=== PATIENT | female | born 1985 ===

== ENCOUNTER 2020-07-22 09:35 | Outpatient (REF) | payer MEDICAID, SELFPAY ==
[2020-07-23 09:27] LABS: CT PCR NOT DETECTED (Not Detect.); NG PCR NOT DETECTED (Not Detect.)
[2020-07-26 20:21] LABS: HPV mRNA E6/E7 rflx Not Detected (Not Detected)
== END 2020-07-22 09:36 | disposition home or self-care (01) ==
LOC: HO.LAB 09:35
PROVIDERS: Visit Provider Obstetrics & Gynecology
DX: Z30.432 Encounter for removal of intrauterine contraceptive device (principal); Z01.411 Encounter for gynecological examination (general) (routine) with abnormal findings; Z11.51 Encounter for screening for human papillomavirus (HPV); N92.1 Excessive and frequent menstruation with irregular cycle; R10.2 Pelvic and perineal pain; N80.9 Endometriosis, unspecified; Z20.2 Contact with and (suspected) exposure to infections with a predominantly sexual mode of transmission
CPT/HCPCS: 58301; 81003; 81025; 87491; 87591; 87624; 88142

== ENCOUNTER 2020-08-03 13:15 | Outpatient (REF) | payer MEDICAID, SELFPAY ==
[2020-08-03 14:48] LABS: Hematocrit 39.9 % (37-47); Hemoglobin 13.4 g/dl (12.0-16.0); Mean Corpuscular HGB Conc 33.6 g/dl (31.0-35.0); Mean Corpuscular Hemoglobin 32.7 pg (27.0-33.0); Mean Corpuscular Volume 97.3 fL (80-98); Mean Platelet Volume 10.6 fL (9.4-12.3); Platelet Count 290 X10*3/uL (160-400); Red Cell Distribution Width 12.8 % (11.0-16.0); White Blood Count 6.2 X10*3/uL (4.8-10.8)
[2020-08-04 09:48] LABS: CT PCR NOT DETECTED (Not Detect.); NG PCR NOT DETECTED (Not Detect.)
== END 2020-08-03 13:16 | disposition home or self-care (01) ==
LOC: HO.LAB 13:15
PROVIDERS: Visit Provider Obstetrics & Gynecology
DX: N93.9 Abnormal uterine and vaginal bleeding, unspecified (principal); R10.2 Pelvic and perineal pain; Z97.5 Presence of (intrauterine) contraceptive device; Z79.899 Other long term (current) drug therapy
CPT/HCPCS: 36415; 85027; 87491; 87591; 99212

== ENCOUNTER 2020-08-04 11:32 | Outpatient (REF) | payer MEDICAID, SELFPAY ==
--- NOTE | ~2020-08-04 | US_ITS ---
EXAMINATION: ULTRASOUND PELVIS COMPLETE. CLINICAL INFORMATION: Pelvic and perineal pain. History of endometriosis. COMPARISON: None TECHNIQUE: Transabdominal and transvaginal imaging of pelvis was performed. FINDINGS: The uterus is anteverted and anteflexed measuring 8.0 cm in length, 5.02 cm and 5.76 cm in transverse dimension. Endometrial thickness is 0.63 cm. There is a hypoechoic lesion in the anterior body of uterus measuring 0.3 x 2.9 x 3.8 cm, likely fibroid. No additional lesions seen. IUD is not visualized at this time. The right ovary measures 3.68 x 1.93 x 2.52 cm and volume 9.37 mL. Appears unremarkable. Previously right ovary measures 2.1 x 2.1 x 1.9 cm. The left ovary measures 2. 931.65 x 1.75 cm and volume 4.42 mL. It is unremarkable. Previously left ovary measured 2.8 x 5.3 x 2.2 cm. There is small amount of free fluid in the pelvis. US/US transvaginal IMPRESSION: Likely small uterine fibroid in the anterior body of uterus. Patient is actively bleeding. No fibroid is new since the last ultrasound exam 05/02/2018 Endometrial thickness measures 0.63 cm. The ovaries are unremarkable.
--- NOTE | ~2020-08-04 | US_ITS ---
EXAMINATION: ULTRASOUND PELVIS COMPLETE. CLINICAL INFORMATION: Pelvic and perineal pain. History of endometriosis. COMPARISON: None TECHNIQUE: Transabdominal and transvaginal imaging of pelvis was performed. FINDINGS: The uterus is anteverted and anteflexed measuring 8.0 cm in length, 5.02 cm and 5.76 cm in transverse dimension. Endometrial thickness is 0.63 cm. There is a hypoechoic lesion in the anterior body of uterus measuring 0.3 x 2.9 x 3.8 cm, likely fibroid. No additional lesions seen. IUD is not visualized at this time. The right ovary measures 3.68 x 1.93 x 2.52 cm and volume 9.37 mL. Appears unremarkable. Previously right ovary measures 2.1 x 2.1 x 1.9 cm. The left ovary measures 2. 931.65 x 1.75 cm and volume 4.42 mL. It is unremarkable. Previously left ovary measured 2.8 x 5.3 x 2.2 cm. There is small amount of free fluid in the pelvis. US/US pelvic complete IMPRESSION: Likely small uterine fibroid in the anterior body of uterus. Patient is actively bleeding. No fibroid is new since the last ultrasound exam 05/02/2018 Endometrial thickness measures 0.63 cm. The ovaries are unremarkable.
== END 2020-08-04 11:33 | disposition home or self-care (01) ==
LOC: HO.US 11:32
PROVIDERS: Visit Provider Obstetrics & Gynecology
DX: R10.2 Pelvic and perineal pain (principal)
CPT/HCPCS: 76830; 76856

== ENCOUNTER → 2020-08-23 08:01 | Outpatient (BNVA) | payer MEDICAID, SELFPAY | PROVIDERS: Visit Provider Obstetrics & Gynecology | DX: N92.1 Excessive and frequent menstruation with irregular cycle (principal); D21.9 Benign neoplasm of connective and other soft tissue, unspecified | CPT/HCPCS: 99212 ==

== ENCOUNTER → 2020-10-19 07:59 | Outpatient (BNVA) | payer MEDICAID, SELFPAY | PROVIDERS: Visit Provider Obstetrics & Gynecology | DX: N92.1 Excessive and frequent menstruation with irregular cycle (principal) | CPT/HCPCS: 99212 ==

== ENCOUNTER 2021-07-04 14:13 | Outpatient (REF) | payer MEDICAID, SELFPAY ==
[2021-07-04 15:33] LABS: Hematocrit 22.6 % (37.0-47.0); Hemoglobin 7.3 g/dl (12.0-16.0); Mean Corpuscular HGB Conc 32.3 g/dl (31.0-35.0); Mean Corpuscular Volume 89.7 fL (80.0-98.0); Platelet Count 357 X10*3/uL (160-400); Red Blood Count 2.52 X10*6/uL (4.20-5.50); Red Cell Distribution Width 13.9 % (11.0-16.0); White Blood Count 8.6 X10*3/uL (4.8-10.8)
[2021-07-04 16:24] LABS: HCG Quantitative < 2 mIU/mL; TSH reflex Free T4 1.57 uIU/mL (0.32-4.0)
[2021-07-05 06:31] LABS: CT PCR NOT DETECTED (Not Detect.); NG PCR NOT DETECTED (Not Detect.)
== END 2021-07-04 14:14 | disposition home or self-care (01) ==
LOC: HO.LAB 14:13
PROVIDERS: Visit Provider Obstetrics & Gynecology
DX: Z01.411 Encounter for gynecological examination (general) (routine) with abnormal findings (principal); N93.9 Abnormal uterine and vaginal bleeding, unspecified
CPT/HCPCS: 36415; 84443; 84702; 85027; 87491; 87591; 99212

== ENCOUNTER 2021-07-04 15:53 | Emergency (ER) | payer MEDICAID, SELFPAY ==
[2021-07-04] VITALS (16 sets, daily range): BP systolic 94–122; BP diastolic 48–71; PULSE 75–100; RESP 14–18; TEMP 36.9–37.4; O2SAT 99–100; BMI 26.6
--- NOTE | 2021-07-04 16:05 | ED.FEMALEGU ---
HPI - Female Genitourinary General Chief complaint: Vaginal Bleeding Stated complaint: Low Blood Count Time Seen by Provider: 07/04/21 16:00 Source: patient Mode of arrival: ambulatory Limitations: no limitations History of Present Illness HPI Narrative: This is a 36-year-old female presenting to the emergency department with abnormal uterine bleeding for the past 10 days. She was sent in from her OB GYNs office Dr. Julio. Patient tells me that she has been having a lot of bright red blood, she tells me that she is frequently changing her pad, around every hour or 2. According to patient and Dr. Julio E patient was on continuous control pills for the last year which she was taking 1 week off every 90 days her last pill was taken on June 18, she went to her pharmacy and there is no other pack of pills so she has not taken her control pills since then. She reports that her last menstrual cycle was on June 22 and has been bleeding ever since. She denies any abdominal pain, nausea, vomiting, chances of , fevers, chills, chest pain, shortness of breath, dizziness, weakness. MD elicited complaint: vaginal bleeding Severity: moderate Vaginal discharge: none Vaginal bleeding: none Exacerbating factors: none Relieving factors: none Associated symptoms: denies other symptoms Treatment prior to arrival: none Sexual activity: Yes Patient : Yes Related Data Previous Rx's Medication Instructions Recorded norgestrel 0.3 mg-ethinyl 1 tab PO DAILY 90 Days #90 tab 07/04/21 estradiol 30 mcg tablet (Humberto (28)) Allergies Allergy/AdvReac Type Severity Reaction Status Date / Time No Known Allergies Allergy Verified 07/04/21 16:00 Review of Systems Review of Systems: Constitutional : No Weight loss, No Fever, No Chills, No Fatigue, No Malaise ENT/Mouth : No sore throat, No Rhinorrhea Eyes: No Eye Pain, No Swelling, No Redness Cardiovascular : No Chest Pain, No SOB, No Dyspnea on Exertion, No Orthopnea, No Edema, No Palpitations Respiratory : No Cough, No Sputum, No Wheezing Gastrointestinal : No Nausea, No Vomiting, No Diarrhea, No Constipation, No abdominal Pain, No Hematochezia, No Melena Genitourinary : No Dysuria, No Urinary Frequency, No Hematuria, + vaginal bleeding Musculoskeletal : No joint pain, No Myalgias, No Joint Swelling Skin : No Skin Lesions, No rash Neuro : No Weakness, No Numbness, No Dizziness, No Headache Psych : No Anxiety/Panic, No Depression All other systems reviewed and are negative Yes all other systems are reviewed and are negative [facility] Past Medical History Attestation statement: The following information was validated with the patient. Source: old records reviewed and nursing notes reviewed Medical History Constipation Endometriosis Hypoglycemia Surgical History Hx of laparoscopy Family History Family History Father HTN (hypertension) Diabetes Mother Hypothyroid Maternal Grandfather No problems noted. Maternal Aunt Throat cancer Sister Hypothyroid Social History Social History Household Members: Significant Other Household Members Other:: son Housing: Condominium Alcohol intake: current Alcohol intake frequency: holidays/special occasions only Patient Tobacco Use Status: Never used Tobacco Advance Directives: No Advance Directives Information Provided: No Patient : No Physical Exam Vital Signs: Vital Signs: Last Vital Signs Temp 98.5 F 07/04/21 16:00 Pulse 92 07/04/21 16:00 Resp 18 07/04/21 16:00 BP 122/71 07/04/21 16:00 Pulse Ox 100 07/04/21 16:00 BMI result Body Mass Index 26.6 Appearance: Alert.? Oriented X3.? No acute distress.? Head: Normocephalic, atraumatic, no step-offs or deformities Eyes: Pupils equal, round and reactive to light.? ENT: Pharynx normal.? Neck: Normal inspection.? Neck supple.? CVS: Normal heart rate and rhythm.? Pulses normal.? Respiratory: No respiratory distress.? Breath sounds normal.? Abdomen: Soft and nontender.? Skin: Skin warm and dry.? Normal skin color.? Normal skin turgor.? Extremities: No lower extremity edema.? No calf ttp. 5/5 strength to bilateral upper and lower extremities Back: No midline tenderness, no C-spine tenderness, full range of motion, no CVA tenderness bilaterally Neuro: Oriented X 3.? No motor deficit.? No sensory deficit. CN 2-12 intact Course Reevaluation(s) Reevaluation #1: Spoke to Dr. 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 for 2 days, 1 b.i.d. for 2 days and then take 1 daily. He would also like 2 units of packed red blood cells transfused based off patient's lab work Time: 16:11 Reevaluation #2: Patient's magnesium noted to be elevated 4.9, however she does have 2+ reflexes upper and lower extremities, no neurological impairment, patient is not hypotensive, no nausea or vomiting, no bradycardia. Ordered an EKG to rule out intraventricular conduction issues. She does report that she takes multiple multivitamins a day. I gave sign-out to MYRANDA Chowdhury. Time: 17:16 MDM - Female Genitourinary MDM Narrative Medical decision making narrative: 1610 36-year-old female presents with abnormal uterine bleeding times 10 days. Sent in from her OB GYNs office Dr. Julio Physical exam benign. At this time a pelvic exam was not done as 1 was done earlier today. Plan at this time is labs, type and screen and prepare for blood transfusion. Written consent was obtained Medical Records Attestation: I reviewed the patient's medical records. Lab Data Attestation: I reviewed the patient's lab results. Result diagrams: 07/04/21 16:15 Labs: Lab Results 07/04/21 07/04/21 07/04/21 Range/Units 16:15 16:15 16:15 Sodium 137 (135-145) mmol/L Potassium 3.9 (3.3-5.1) mmol/L Chloride 108 (96-108) mmol/L Carbon Dioxide 25 (22-29) mmol/L Anion Gap 8 L (12-20) BUN 7 L (9-16) mg/dL Creatinine 0.67 (0.5-1.4) mg/dL Estim Creat Clear Calc 118.1 Estimated GFR > 60 Random Glucose 86 (60-115) mg/dL Calcium 9.3 (8.4-10.2) mg/dL Magnesium 4.9 H* (1.6-2.6) mg/dL Total Bilirubin 0.2 (0.0-1.0) mg/dL AST 22 (5-31) U/L ALT 20 (0-31) U/L Alkaline Phosphatase 49 (39-117) U/L Total Protein 6.7 (6.5-8.0) g/dL Albumin 3.8 (3.5-5.0) g/dL Beta HCG, Quant < 2 mIU/mL COVID-19 (MAGAD) Negative (Negative) COVID-19 Clin Com See Note Blood Type O Positive Antibody Screen NEGATIVE Crossmatch See Detail Critical Care Time Critical Care Time Critical Care Time: No Discharge Plan Discharge Clinical Impression: Abnormal uterine bleeding (AUB) Patient Disposition: Home, Self-Care Additional Instructions: Take your medications as prescribed. If you were prescribed antibiotics today, it is important that you take your medication to their entirety, do not skip any doses, do not finish them early. Follow-up with your primary care provider this week. Return to the emergency department with new or worsening symptoms. Such as fevers, chills, chest pain, shortness of breath, nausea, vomiting, dizziness, headache, vision changes, lethargy, weakness, if your bleeding through more than 2 pads per hour or tampons. In case of emergency call [address] 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 If you have any issues filling these prescriptions please reach out to Dr. Julio directly Prescriptions: No Action Humberto (28) 0.3-30 mg-mcg tablet 1 tab PO DAILY 90 Days Qty: 90 3RF Rx Instructions: Take 1 tablet a day continuously for 90 days then 1 week off Referrals: [facility] [Primary Care Provider] - 2 days Nishant Julio MD [Physician] - 2 days Stand Alone Forms: Work/School Release
[2021-07-04 17:02] LABS: Alanine Aminotransferase 20 U/L (0-31); Albumin Level 3.8 g/dL (3.5-5.0); Alkaline Phosphatase 49 U/L (39-117); Anion Gap 8 (12-20); Aspartate Amino Transferase 22 U/L (5-31); Bilirubin Total 0.2 mg/dL (0.0-1.0); Blood Urea Nitrogen 7 mg/dL (9-16); Calcium 9.3 mg/dL (8.4-10.2); Carbon Dioxide 25 mmol/L (22-29); Chloride 108 mmol/L (96-108); Creatinine Clr Calc Pharmacy 118.1; Estimated Glomerular Filt Rate > 60; Glucose Random 86 mg/dL (60-115); Magnesium 4.9 mg/dL (1.6-2.6); Potassium 3.9 mmol/L (3.3-5.1); Sodium 137 mmol/L (135-145); Total Protein 6.7 g/dL (6.5-8.0)
[2021-07-04 17:04] LABS: HCG Quantitative < 2 mIU/mL
[2021-07-04 17:06] LABS: COVID-19 Test Negative (Negative)
--- NOTE | 2021-07-04 17:13 | PC.NURSE ---
took lab report off phone of a Mag level of 4.9, I reported to Mari WHITMORE and Nara MONTOYA
--- NOTE | 2021-07-04 17:55 | ECG_ITS ---
Test Reason : BLOOD LOSS Blood Pressure : / mmHG Vent. Rate : 089 BPM Atrial Rate : 089 BPM P-R Int : 146 ms QRS Dur : 118 ms QT Int : 386 ms P-R-T Axes : 057 032 017 degrees QTc Int : 469 ms Normal sinus rhythm Incomplete right bundle branch block Borderline ECG No previous ECGs available Referred By: Liv Reyes Electronically Signed By:JORDANA GIFFORD
[2021-07-04] MEDS: hydrOXYzine HCL 25 MG TABLET PO (18:07)
--- NOTE | 2021-07-04 19:58 | PC.NURSE ---
Blood transfusion started dual sign off done with Pam RN, Alli RN at bedside for first 15 minutes
--- NOTE | 2021-07-04 20:14 | PC.NURSE ---
15 minute window for blood transfusion observation over. No signs of reaction, will continue to monitor.
--- NOTE | 2021-07-04 21:56 | PC.NURSE ---
2nd unit of tranfusion started Alyssa MONTOYA at bedside during first 15 mins, no signs of reaction will continue to monitor.
[2021-07-05 00:07] LABS: Basophils Percent Auto 0.3 % (0-2); Eosinophils Absolute Auto 0.5 X10*3/uL (0.0-0.4); Eosinophils Percent Auto 5.2 % (0-4); Hematocrit 26.6 % (37.0-47.0); Hemoglobin 8.9 g/dl (12.0-16.0); Imm Gran Abs Auto 0.01 X10*3/uL (0.00-0.03); Imm Gran Pct Auto 0.1 % (0.0-0.4); Lymphocytes Absolute Auto 2.7 X10*3/uL (1.2-4.9); Lymphocytes Percent Auto 31.3 % (20-40); MANUAL DIFF FLAG NO; Mean Corpuscular HGB Conc 33.5 g/dl (31.0-35.0); Mean Corpuscular Hemoglobin 29.9 pg (27.0-33.0); Mean Corpuscular Volume 89.3 fL (80.0-98.0); Mean Platelet Volume 9.8 fL (9.4-12.3); Monocytes Absolute Auto 0.9 X10*3/uL (0.1-1.2); Neutrophils Absolute Auto 4.6 x10*3/uL (2.0-8.3); Neutrophils Percent Auto 53.1 % (45-73); Platelet Count 261 X10*3/uL (160-400); Red Blood Count 2.98 X10*6/uL (4.20-5.50); Red Cell Distribution Width 14.2 % (11.0-16.0); White Blood Count 8.6 X10*3/uL (4.8-10.8)
[2021-07-05 00:13] VITALS: BP 113/66; PULSE 74; RESP 14; O2SAT 100
[2021-07-05 01:09] VITALS: BP 97/56; PULSE 94; RESP 18; TEMP 37.1; O2SAT 100
== END 2021-07-05 01:14 | disposition home or self-care (01) ==
LOC: HO.ED 16:19
PROVIDERS: Physician Assistant; Emergency Provider Emergency Medicine
DX: N93.8 Other specified abnormal uterine and vaginal bleeding (principal); D64.9 Anemia, unspecified; Z20.822 Contact with and (suspected) exposure to COVID-19; Z79.899 Other long term (current) drug therapy
CPT/HCPCS: 36415; 36430; 80053; 83735; 84702; 85025; 86850; 86900; 86901; 86923; 87635; 93005; 99285; P9016

== ENCOUNTER → 2021-08-15 08:21 | Outpatient (BNVA) | payer MEDICAID, SELFPAY | PROVIDERS: Visit Provider Obstetrics & Gynecology | DX: N93.9 Abnormal uterine and vaginal bleeding, unspecified (principal); D64.9 Anemia, unspecified | CPT/HCPCS: 99212 ==

== ENCOUNTER → 2021-08-29 09:18 | Outpatient (BNV) | payer MEDICAID, OTHER, SELFPAY | PROVIDERS: Referring Provider Obstetrics & Gynecology; Visit Provider Internal Medicine | DX: D64.9 Anemia, unspecified (principal) | CPT/HCPCS: 99204; 99213; 99214 ==

== ENCOUNTER 2021-09-22 08:06 | Outpatient (REF) | payer MEDICAID, SELFPAY | END 2021-09-22 08:07 | disposition home or self-care (01) | LOC: HO.MDS 08:06 | PROVIDERS: Visit Provider Internal Medicine | DX: D50.9 Iron deficiency anemia, unspecified (principal) | CPT/HCPCS: 96365; J1756 ==

== ENCOUNTER 2021-09-28 07:35 | Outpatient (REF) | payer MEDICAID, SELFPAY | END 2021-09-28 07:36 | disposition home or self-care (01) | LOC: HO.MDS 07:35 | PROVIDERS: Visit Provider Internal Medicine | DX: D50.9 Iron deficiency anemia, unspecified (principal) | CPT/HCPCS: 96365; J1756 ==

== ENCOUNTER 2021-10-04 07:05 | Outpatient (REF) | payer MEDICAID, SELFPAY | END 2021-10-04 07:06 | disposition home or self-care (01) | LOC: HO.MDS 07:05 | PROVIDERS: Visit Provider Internal Medicine | DX: D50.9 Iron deficiency anemia, unspecified (principal) | CPT/HCPCS: 96365; J1756 ==

== ENCOUNTER 2021-10-11 07:20 | Outpatient (REF) | payer MEDICAID, SELFPAY | END 2021-10-11 07:21 | disposition home or self-care (01) | LOC: HO.MDS 07:20 | PROVIDERS: Visit Provider Internal Medicine | DX: D50.9 Iron deficiency anemia, unspecified (principal) | CPT/HCPCS: 96365; J1756 ==

== ENCOUNTER 2021-10-21 07:32 | Outpatient (REF) | payer MEDICAID, SELFPAY | END 2021-10-21 07:33 | disposition home or self-care (01) | LOC: HO.MDS 07:32 | PROVIDERS: Visit Provider Internal Medicine | DX: D50.9 Iron deficiency anemia, unspecified (principal) | CPT/HCPCS: 96365; J1756 ==

== ENCOUNTER 2022-01-28 16:22 | Emergency (ER) | payer MEDICAID, SELFPAY ==
--- NOTE | ~2022-01-28 | CT_ITS ---
EXAMINATION: CT ANGIOGRAM OF THE CHEST WITH AND WITHOUT CONTRAST (CT PULMONARY ANGIOGRAM FOR PE) EXAMINATION: CTA CHEST PE STUDY CLINICAL INFORMATION: SOB, travel, control COMPARISON: No pertinent prior studies are available for comparison. TECHNIQUE: Prior to contrast administration, noncontrast localization images were obtained. After the administration of 65 mL of Omnipaque nonionic IV contrast, contiguous thin slice helical images were obtained through the thorax. Reformatted MIP images in the coronal and sagittal planes were obtained at the acquisition workstation. This CT examination was performed using dose optimization techniques as appropriate, variously including the following: *Automated exposure control *Adjustment of mA and/or kV according to patient size (this includes techniques or standardized protocols for targeted exams where dose is matched to indication/reason for exam; i.e. extremities or head) *Use of iterative reconstruction technique DLP: 270 mGy-cm. FINDINGS: The bolus timing on this study was acceptable for visualization of the pulmonary arterial tree. There are no intraluminal pulmonary arterial filling defects present to suggest pulmonary embolism. The lungs are clear. No abnormal pulmonary nodules or masses are appreciated. No significant hilar or mediastinal adenopathy. There is no evidence of pleural effusion or pneumothorax. The heart is normal in size. No evidence of ventricular septal bowing or right heart strain. Great vessels are normal. Otherwise the mediastinum is unremarkable. There is no pericardial effusion or pericardial thickening. Limited evaluation of the upper abdominal viscera is unremarkable. CT/CT angio chest PE protocol IMPRESSION: No evidence for pulmonary emboli. No focal airspace disease. VTE: Negative
[2022-01-28 16:38] VITALS: BP 151/88; PULSE 88; RESP 22; TEMP 37.1; O2SAT 98; BMI 27.4
[2022-01-28 16:58] LABS: MANUAL DIFF FLAG NO
[2022-01-28 16:59] LABS: Basophils Percent Auto 0.5 % (0-2); Eosinophils Absolute Auto 0.5 X10*3/uL (0.0-0.4); Eosinophils Percent Auto 7.8 % (0-4); Hematocrit 42.8 % (37.0-47.0); Hemoglobin 14.5 g/dl (12.0-16.0); Imm Gran Abs Auto 0.02 X10*3/uL (0.00-0.03); Imm Gran Pct Auto 0.3 % (0.0-0.4); Lymphocytes Absolute Auto 2.4 X10*3/uL (1.2-4.9); Lymphocytes Percent Auto 36.7 % (20-40); Mean Corpuscular HGB Conc 33.9 g/dl (31.0-35.0); Mean Corpuscular Hemoglobin 31.8 pg (27.0-33.0); Mean Corpuscular Volume 93.9 fL (80.0-98.0); Mean Platelet Volume 9.5 fL (9.4-12.3); Monocytes Absolute Auto 0.7 X10*3/uL (0.1-1.2); Monocytes Percent Auto 9.9 % (2-11); Neutrophils Percent Auto 44.8 % (45-73); Platelet Count 480 X10*3/uL (160-400); Red Blood Count 4.56 X10*6/uL (4.20-5.50); Red Cell Distribution Width 13.2 % (11.0-16.0); White Blood Count 6.6 X10*3/uL (4.8-10.8)
--- NOTE | 2022-01-28 17:11 | ED_ITS ---
HPI - SOB/Dyspnea General Chief Complaint: Dyspnea Stated Complaint: difficulty breathing Time Seen by Provider: 01/28/22 16:41 Source: patient Mode of arrival: ambulatory History of Present Illness HPI Narrative: This is a 36-year-old female with a significant, recent past medical history of travel to the [place], she is currently on control, and is complaining of shortness of breath for the past couple of days without fever, chills, nausea, vomiting, urinary symptoms and states that sometimes her symptoms are making her ?feel like she is going to ?. Patient recently diagnosed with COVID-19 on 01/19 and denies any history of smoking, asthma, vaping, marijuana use. She also denies any menorrhagia or calf swelling. Related Data Previous Rx's Medication Instructions Recorded norgestrel 0.3 mg-ethinyl 1 tab PO DAILY 90 days #90 tabs 07/04/21 estradiol 30 mcg tablet (Humberto (28)) Allergies Allergy/AdvReac Type Severity Reaction Status Date / Time No Known Allergies Allergy Verified 01/28/22 16:38 Review of Systems Review of Systems: Pertinent positives and negatives as stated in HPI 10 point review of systems is otherwise negative. [facility] Past Medical History Source: nursing notes reviewed Medical History Constipation Endometriosis Hypoglycemia Surgical History Hx of laparoscopy Family History Family History Father HTN (hypertension) Diabetes Mother Hypothyroid Maternal Grandfather No problems noted. Maternal Aunt Throat cancer Sister Hypothyroid Social History Social History Household Members: Significant Other Household Members Other:: son Housing: Condominium Are you a primary wound care coordinator to a significant other at home: No Do you presently have visiting nurse or other home services: No Alcohol intake: never Patient Tobacco Use Status: Never used Tobacco Smoked in Last 30 Days: No Use of substances other than those prescribed or required for medical reasons: No Advance Directives: No Advance Directives Information Provided: Yes service: No Current occupational status: employed Physical Exam Vital Signs: Vital Signs: Last Vital Signs Temp 99.1 F 01/28/22 18:38 Pulse 79 01/28/22 18:38 Resp 16 01/28/22 18:38 BP 120/79 01/28/22 18:38 Pulse Ox 98 01/28/22 18:38 O2 Del Method 01/28/22 18:38 BMI result Body Mass Index 27.4 VITAL SIGNS: Reviewed. GENERAL: Well developed, well nourished, in no acute distress. HEAD: Normocephalic/atraumatic EYES: PERRLA, EOMI EARS: Ext canals without abnormality OROPHARYNX: no oral lesions noted, posterior pharynx clear LUNGS: Decreased breath sounds bilaterally with mild expiratory wheeze, tachypnea is present but not significant increased work of breathing. SpO2<98> CARDIOVASCULAR: Regular rate and rhythm without noted murmurs, no JVD or lower extremity edema. ABDOMEN: Soft, non-tender, non-distended with bowel sounds. MUSCULOSKELETAL: No tenderness, deformities, or effusions noted on gross inspection. EXTREMITIES: No cyanosis, clubbing or edema. SKIN: Inspection of the skin reveals no rashes NEUROLOGIC: Alert and oriented x 4. Strength and sensation to light touch were grossly intact x 4. Course Course Course Narrative: 36-year-old female with history and clinical presentation suggestive of possible residual viral symptoms, PE, and less likely felt to be bacterial pneumonia. Patient will undergo CT angio for PE protocol. All investigations reviewed and no acute findings to suggest PE, pneumonia and patient was given 4 puffs of Ventolin inhaler for simply symptom relief though she does not have a history of asthma. Patient will go home with this pump and has received strict instructions to follow-up with her primary care provider for further evaluation and outpatient management. Medications Administered Discontinued Medications Generic Name Dose Route Start Last Admin Trade Name Freq PRN Reason Stop Dose Admin Iohexol 100 ml 01/28/22 18:35 01/28/22 18:36 Iohexol 350 Mg/Ml 100 Ml Infus..Btl IV 01/28/22 18:36 65 ml ONCE ONE Administration MDM - SOB/Dyspnea Lab Data Result diagrams: 01/28/22 16:52 01/28/22 16:52 Labs: Lab Results 01/28/22 01/28/22 01/28/22 Range/Units 16:51 16:52 16:52 WBC 6.6 (4.8-10.8) X10*3/uL RBC 4.56 (4.20-5.50) X10*6/uL Hgb 14.5 (12.0-16.0) g/dl Hct 42.8 (37.0-47.0) % MCV 93.9 (80.0-98.0) fL MCH 31.8 (27.0-33.0) pg MCHC 33.9 (31.0-35.0) g/dl RDW 13.2 (11.0-16.0) % Plt Count 480 H D (160-400) X10*3/uL MPV 9.5 (9.4-12.3) fL Immature Gran % (Auto) 0.3 (0.0-0.4) % Neut % (Auto) 44.8 L (45-73) % Lymph % (Auto) 36.7 (20-40) % Mercer % (Auto) 9.9 (2-11) % Eos % (Auto) 7.8 H (0-4) % Baso % (Auto) 0.5 (0-2) % Lymph # (Auto) 2.4 (1.2-4.9) X10*3/uL Mercer # (Auto) 0.7 (0.1-1.2) X10*3/uL Eos # (Auto) 0.5 H (0.0-0.4) X10*3/uL Baso # (Auto) 0.0 (0.0-0.2) X10*3/uL Abs Immat Gran (auto) 0.02 (0.00-0.03) X10*3/uL Absolute Neuts (auto) 3.0 (2.0-8.3) x10*3/uL Absolute Nucleated RBC 0.000 (0.0-0.012) X10*3/uL Nucleated RBC % (auto) 0.0 (0.0-0.2) /100WBC Sodium 139 (135-145) mmol/L Potassium 4.2 (3.3-5.1) mmol/L Chloride 109 H (96-108) mmol/L Carbon Dioxide 21 L (22-29) mmol/L Anion Gap 13 (12-20) BUN 7 L (9-16) mg/dL Creatinine 0.75 (0.5-1.4) mg/dL Estim Creat Clear Calc 106.9 Estimated GFR > 60 Random Glucose 98 (60-115) mg/dL Calcium 10.0 D (8.4-10.2) mg/dL Total Bilirubin 0.2 (0.0-1.0) mg/dL AST 17 (5-31) U/L ALT 12 (0-31) U/L Alkaline Phosphatase 49 (39-117) U/L Total Protein 7.5 (6.5-8.0) g/dL Albumin 3.9 (3.5-5.0) g/dL Urine Color Urine Appearance Urine pH (5.0-9.0) Ur Specific [place] (1.005-1.025) Urine Protein (Neg-Trace) mg/dL Urine Glucose (UA) (Negative) mg/dL Urine Ketones (Negative) mg/dL Urine Blood (Negative) Urine Nitrite (Negative) Ur Leukocyte Esterase (Negative) Urine RBC (0-2) /HPF Urine WBC (0-5) /HPF Ur Squamous Epith Cells (0-2) /HPF Urine Bacteria (None Seen) Hyaline Casts (0-2) /LPF Urine Test (NEGATIVE) Influenza Type A (PCR) NEGATIVE (Negative) Influenza Type B (PCR) NEGATIVE (Negative) RSV RNA Qual (PCR) NEGATIVE (Negative) SARS-CoV-2 RNA (RT-PCR) NEGATIVE (Negative) 01/28/22 01/28/22 Range/Units 17:12 17:12 WBC (4.8-10.8) X10*3/uL RBC (4.20-5.50) X10*6/uL Hgb (12.0-16.0) g/dl Hct (37.0-47.0) % MCV (80.0-98.0) fL MCH (27.0-33.0) pg MCHC (31.0-35.0) g/dl RDW (11.0-16.0) % Plt Count (160-400) X10*3/uL MPV (9.4-12.3) fL Immature Gran % (Auto) (0.0-0.4) % Neut % (Auto) (45-73) % Lymph % (Auto) (20-40) % Mercer % (Auto) (2-11) % Eos % (Auto) (0-4) % Baso % (Auto) (0-2) % Lymph # (Auto) (1.2-4.9) X10*3/uL [place] # (Auto) (0.1-1.2) X10*3/uL Eos # (Auto) (0.0-0.4) X10*3/uL Baso # (Auto) (0.0-0.2) X10*3/uL Abs Immat Gran (auto) (0.00-0.03) X10*3/uL Absolute Neuts (auto) (2.0-8.3) x10*3/uL Absolute Nucleated RBC (0.0-0.012) X10*3/uL Nucleated RBC % (auto) (0.0-0.2) /100WBC Sodium (135-145) mmol/L Potassium (3.3-5.1) mmol/L Chloride (96-108) mmol/L Carbon Dioxide (22-29) mmol/L Anion Gap (12-20) BUN (9-16) mg/dL Creatinine (0.5-1.4) mg/dL Estim Creat Clear Calc Estimated GFR Random Glucose (60-115) mg/dL Calcium (8.4-10.2) mg/dL Total Bilirubin (0.0-1.0) mg/dL AST (5-31) U/L ALT (0-31) U/L Alkaline Phosphatase (39-117) U/L Total Protein (6.5-8.0) g/dL Albumin (3.5-5.0) g/dL Urine Color Yellow Urine Appearance Clear Urine pH 6.0 (5.0-9.0) Ur Specific [place] 1.020 (1.005-1.025) Urine Protein Trace (Neg-Trace) mg/dL Urine Glucose (UA) Negative (Negative) mg/dL Urine Ketones Negative (Negative) mg/dL Urine Blood Negative (Negative) Urine Nitrite Negative (Negative) Ur Leukocyte Esterase Trace H (Negative) Urine RBC 0-2 (0-2) /HPF Urine WBC 0-5 (0-5) /HPF Ur Squamous Epith Cells 0-2 (0-2) /HPF Urine Bacteria None Seen (None Seen) Hyaline Casts 0-2 (0-2) /LPF Urine Test NEGATIVE (NEGATIVE) Influenza Type A (PCR) (Negative) Influenza Type B (PCR) (Negative) RSV RNA Qual (PCR) (Negative) SARS-CoV-2 RNA (RT-PCR) (Negative) Discharge Plan Discharge Clinical Impression: Dyspnea Patient Disposition: Home, Self-Care Instructions: Dyspnea (ED) Additional Instructions: 1. Recommend that you use 2 puffs of the inhaler that you have been provided, every 4-6 hours, as needed for feelings of shortness of breath. Please be advised that this will cause you to feel tremulous as well as having a ?racing heart?. 2. Recommend that you follow-up with your primary care provider for re- evaluation and further outpatient management. The residual symptoms may be secondary to your recent viral infection. Return to the ER for worsening symptoms. Prescriptions: No Action Humberto (28) 0.3-30 mg-mcg tablet 1 tab PO DAILY 90 Days Qty: 90 3RF Rx Instructions: Take 1 tablet a day continuously for 90 days then 1 week off
[2022-01-28 17:19] LABS: Alanine Aminotransferase 12 U/L (0-31); Albumin Level 3.9 g/dL (3.5-5.0); Alkaline Phosphatase 49 U/L (39-117); Anion Gap 13 (12-20); Aspartate Amino Transferase 17 U/L (5-31); Bilirubin Total 0.2 mg/dL (0.0-1.0); Blood Urea Nitrogen 7 mg/dL (9-16); Carbon Dioxide 21 mmol/L (22-29); Chloride 109 mmol/L (96-108); Creatinine Clr Calc Pharmacy 106.9; Estimated Glomerular Filt Rate > 60; Glucose Random 98 mg/dL (60-115); Potassium 4.2 mmol/L (3.3-5.1); Sodium 139 mmol/L (135-145); Total Protein 7.5 g/dL (6.5-8.0)
[2022-01-28 17:23] LABS: UPreg QC Valid YES; Urine Pregnancy NEGATIVE (NEGATIVE)
[2022-01-28 17:25] LABS: Appearance Urine Clear; Color Urine Yellow; Glucose Urine UA Negative (Negative)
[2022-01-28 17:26] LABS: Leukocyte Esterase Urine Trace (Negative); Nitrite Urine Negative (Negative); UMIC TRIGGER UACC YES; Urine Blood Negative (Negative); Urine Ketones Negative (Negative); Urine Protein Trace mg/dL (Neg-Trace)
[2022-01-28 17:30] LABS: Bacteria Urine None Seen (None Seen); Hyaline Casts Urine 0-2 /LPF (0-2); RBC Urine 0-2 /HPF (0-2); Squamous Epithelial Cell Urine 0-2 /HPF (0-2); WBC Urine 0-5 /HPF (0-5)
[2022-01-28 17:38] LABS: Influenza A PCR NEGATIVE (Negative); Influenza B PCR NEGATIVE (Negative); Resp Syncy Virus RNA Qual PCR NEGATIVE (Negative); SARS COV2 PCR INHOUSE NEGATIVE (Negative)
[2022-01-28] MEDS: iohexoL 350 MG/ML 100 ML INFUS..BTL IV (18:36)
[2022-01-28 18:38] VITALS: BP 120/79; PULSE 79; RESP 16; TEMP 37.3; O2SAT 98
[2022-01-28] MEDS: Albuterol Sulfate 90 MCG 8 GM INHALER 4 PUFF INHALE (19:58)
--- NOTE | 2022-01-28 19:59 | PC.NURSE ---
pt medication per provider order, educated on inhaler usage, advised to follow up w PCP.
== END 2022-01-28 20:03 | disposition home or self-care (01) ==
PROVIDERS: Emergency Provider Student in an Organized Health Care Education/Training Program
DX: R06.02 Shortness of breath (principal); Z20.822 Contact with and (suspected) exposure to COVID-19
CPT/HCPCS: 0241U; 36415; 71275; 80053; 81001; 81025; 85025; 99284; Q9967

== ENCOUNTER 2022-04-24 11:55 | Outpatient (REF) | payer MEDICAID, SELFPAY | END 2022-04-24 11:56 | disposition home or self-care (01) | LOC: HO.MDS 11:55 | PROVIDERS: Visit Provider Internal Medicine | DX: D50.9 Iron deficiency anemia, unspecified (principal) | CPT/HCPCS: 96365; J1756 ==

== ENCOUNTER 2022-05-05 08:04 | Outpatient (REF) | payer MEDICAID, SELFPAY | END 2022-05-05 08:05 | disposition home or self-care (01) | LOC: HO.MDS 08:04 | PROVIDERS: Visit Provider Internal Medicine | DX: D50.9 Iron deficiency anemia, unspecified (principal) | CPT/HCPCS: 96365; J1756 ==

== ENCOUNTER 2022-05-12 08:19 | Outpatient (REF) | payer MEDICAID, SELFPAY | END 2022-05-12 08:20 | disposition home or self-care (01) | LOC: HO.MDS 08:19 | PROVIDERS: Visit Provider Internal Medicine | DX: D50.9 Iron deficiency anemia, unspecified (principal) | CPT/HCPCS: 96365; J1756 ==

== ENCOUNTER 2022-05-26 10:34 | Outpatient (REF) | payer MEDICAID, SELFPAY | END 2022-05-26 10:35 | disposition home or self-care (01) | LOC: HO.MDS 10:34 | PROVIDERS: Visit Provider Internal Medicine | DX: D50.9 Iron deficiency anemia, unspecified (principal) | CPT/HCPCS: 96365; J1756 ==

== ENCOUNTER 2022-06-02 10:07 | Outpatient (REF) | payer MEDICAID, SELFPAY | END 2022-06-02 10:08 | disposition home or self-care (01) | LOC: HO.MDS 10:07 | PROVIDERS: Visit Provider Internal Medicine | DX: D50.9 Iron deficiency anemia, unspecified (principal) | CPT/HCPCS: 96365; J1756 ==

== ENCOUNTER 2022-06-02 17:22 | Emergency (ER) | payer MEDICAID, SELFPAY ==
[2022-06-02 19:16] VITALS: BP 140/91; PULSE 88; RESP 18; TEMP 36.8; O2SAT 100; BMI 25.0
--- NOTE | 2022-06-02 19:17 | ED.LOWEXIN ---
HPI - Extremity Injury (Lower) General Chief Complaint: Wound/Laceration Stated Complaint: L foot lac Time Seen by Provider: 06/02/22 19:23 Source: patient Mode of arrival: ambulatory History of Present Illness HPI Narrative: 37-year-old female with no significant past medical history presenting to the ED complaining of laceration to left heel s/p cutting on corner of counter 3 days ago. Denies injury to the area, numbness, tingling, weakness. Admits tetanus is up-to-date. MD complaint: foot injury Onset (ago): day(s) Related Data Previous Rx's Medication Instructions Recorded norgestrel 0.3 mg-ethinyl 1 tab PO DAILY 90 days #90 tabs 05/12/22 estradiol 30 mcg tablet (Humberto (28)) Allergies Allergy/AdvReac Type Severity Reaction Status Date / Time No Known Allergies Allergy Verified 06/02/22 19:20 Review of Systems Review of Systems: Constitutional: No Fever, No Chills ENT/Mouth: No Ear Pain, No Nasal Congestion, No sore throat, No Rhinorrhea, No Swallowing Difficulty Cardiovascular: No Chest Pain, No SOB Respiratory: No Cough Gastrointestinal: No Nausea, No Vomiting, No Abdominal pain Genitourinary: No Dysuria, No Flank Pain Musculoskeletal: No joint pain, No Myalgias, No Joint Swelling Skin: +Skin Lesions, No rash Neuro: No Weakness, No Numbness, No Paresthesias Yes all other systems are reviewed and are negative Constitutional: Constitutional: Reports as per [facility] Past Medical History Attestation statement: The following information was validated with the patient. Medical History Constipation Endometriosis Hypoglycemia Surgical History Hx of laparoscopy Family History Family History Father HTN (hypertension) Diabetes Mother Hypothyroid Maternal Grandfather No problems noted. Maternal Aunt Throat cancer Sister Hypothyroid Social History Social History Household Members: Significant Other Household Members Other:: son Housing: Condominium Are you a primary child care specialist to a significant other at home: No Do you presently have visiting nurse or other home services: No Alcohol intake: never Patient Tobacco Use Status: Never used Tobacco service: No Current occupational status: employed Physical Exam Vital Signs: Vital Signs: Last Vital Signs Temp 98.2 F 06/02/22 19:16 Pulse 88 06/02/22 19:16 Resp 18 06/02/22 19:16 BP 140/91 H 06/02/22 19:16 Pulse Ox 100 06/02/22 19:16 O2 Del Method Room Air 06/02/22 19:16 BMI result Body Mass Index 25.0 Const: General: cooperative, healthy appearing and no acute distress Orientation/consciousness: patient oriented x3 Limitations: no limitations HEENT: Head: Yes normal to inspection and Yes atraumatic Ears: hearing grossly normal bilaterally General nose exam: Normal external nose present Face and sinus: Yes normal facial exam Eyes: General: appearance normal, both eyes and all related structures EOM: EOMs intact bilaterally Neck: Neck: Yes normal visual inspection and Yes no meningeal signs Resp: Effort & Inspection: normal respiratory effort and no respiratory distress Cardio: Rate: regular rate Peripheral pulses: dorsalis pedis present Skin: Other: + 2 cm jagged superficial laceration noted to left heel. No active bleeding. Underlying structures appear intact. No surrounding erythema/warmth. Mildly tender to palpation. No crepitus. Rashes: no rashes Neuro: General: patient oriented x3, tone normal and no meningeal signs Gait exam (Neuro): Normal gait present Extrem: General: Yes normal to inspection Course Course Course Narrative: Results discussed with patient including worrisome signs and symptoms and strict return precautions, and when to return to the emergency department. They verbalized understanding and feel safe for discharge at this time. Medical Decision Making Medical Decision Making [facility] Narrative: 37-year-old female with no significant past medical history presenting to the ED complaining of laceration to left heel s/p cutting on corner of counter 3 days ago. On exam vital signs stable, NAD, nontoxic appearing, physical exam as above. Informed patient we cannot close wound due to delay in presentation. Steri-Strips applied. Patient up-to-date on vaccinations. No evidence of infection/cellulitis. Low suspicion for osteo Results discussed with patient including worrisome signs and symptoms and strict return precautions, and when to return to the emergency department. They verbalized understanding and feel safe for discharge at this time. Differential Diagnosis Differential Diagnoses: The differential diagnosis associated with the presentation includes As above Admission/Observation Consideration of admission/observation: Escalation of care including admission/observation considered Lab Data MDM Lab Attestation statement: I reviewed the patient's lab results. Radiology Impression Discussion of test interpretation with radiology: I have reviewed the radiologist's reading. External Record Review External record reviewed: Inpatient record, Office record, Outpatient record, Prior outpatient labs, Prior outpatient radiology, Primary care record and Outside ED record Discharge Plan Discharge Clinical Impression: Laceration Patient Disposition: Home, Self-Care Instructions: Laceration (DC) Additional Instructions: Let Steri-Strips follow-up on their own. Keep dry and clean. If area begins look infected, is red, there is drainage or you fever return to the ED Prescriptions: No Action Humberto (28) 0.3-30 mg-mcg tablet 1 tab PO DAILY 90 Days Qty: 90 3RF Rx Instructions: Take 1 tablet a day continuously for 90 days then 1 week off Referrals: [facility] [Primary Care Provider] - 1 week
== END 2022-06-02 19:46 | disposition home or self-care (01) ==
PROVIDERS: Emergency Provider Emergency Medicine
DX: S91.312A Laceration without foreign body, left foot, initial encounter (principal); M79.672 Pain in left foot; W26.9XXA Contact with unspecified sharp object(s), initial encounter; Y93.9 Activity, unspecified; Y92.9 Unspecified place or not applicable; Y99.9 Unspecified external cause status
CPT/HCPCS: 12001; 99282; 99283

== ENCOUNTER → 2022-09-18 08:04 | Outpatient (BNVA) | payer OTHER, SELFPAY | PROVIDERS: Visit Provider Obstetrics & Gynecology ==

== ENCOUNTER 2022-09-29 11:05 | Outpatient (REF) | payer OTHER, SELFPAY ==
--- NOTE | ~2022-09-29 | US_ITS ---
EXAMINATION: US PELVIS CLINICAL INFORMATION: Benign neoplasm, myoma. Last menstrual period 08/07/2022. Vaginal bleeding. COMPARISON: 08/04/2020. TECHNIQUE: Ultrasound of the pelvis is performed using both transabdominal and transvaginal transducers along with Doppler. Transvaginal imaging is performed due to inadequate visualization transabdominally. FINDINGS: The uterus is heterogeneous and measures 8.8 x 4.8 x 6.7 cm, volume 146.2 mL. The previously identified 3.8 cm fibroid is not identified today, although the area appears diffusely heterogeneous without discrete margins. Multiple fibroids were not previously identified measuring 2.6 x 2.8 x 2.3 cm on the left, 1.3 x 1.3 x 1.2 cm left fundal, and 1.3 x 1.2 x 1.7 cm right fundal. Trace amount of free fluid in the cervix. The endometrial thickness is 1.0 cm. Unremarkable bilateral ovaries. The right ovary measures 2.8 x 1.6 x 1.7 cm, volume 4.0 mL. The left ovary measures 2.1 x 1.4 x 1.7 cm, volume 2.5 mL. US/US pelvic and transvaginal IMPRESSION: Enlarged fibroid uterus. The endometrium is echogenic with thickness of 1.0 cm. Limited visualization of the endometrium due to fibroid uterus. Unremarkable bilateral ovaries, although visualization is limited due to bowel gas.
== END 2022-09-29 11:06 | disposition home or self-care (01) ==
LOC: HO.US 11:05
PROVIDERS: Visit Provider Obstetrics & Gynecology
DX: D21.9 Benign neoplasm of connective and other soft tissue, unspecified (principal)
CPT/HCPCS: 76830; 76856

== ENCOUNTER 2022-10-31 10:17 | Outpatient (AMB) | payer OTHER, SELFPAY ==
[2022-10-31 10:21] VITALS: BP 118/70; BMI 27.6
--- NOTE | 2022-10-31 10:21 | MHC.OFFVIS ---
Intake Vital Signs 10/31/22 10:21 Height 5 ft 5 in Weight 166 lb BMI 27.6 BP 118/70 Intake Visit Reasons: Ultrasound results Health Education Assistant Required: No Allergies No Known Allergies Allergy (Verified 10/31/22 10:22) Is last menstrual period known: Yes Last menstrual period: 10/27/22 Post menopausal: No HPI HPI Comments History of Present Illness Details Presenting for follow-up ultrasound regarding myomas. No complaints no pelvic pressure or pain or abnormal uterine bleeding. On continues control pills. The patient is interested in future Pelvic ultrasound showed the following: The uterus is heterogeneous and measures 8.8 x 4.8 x 6.7 cm, volume 146.2 mL. The previously identified 3.8 cm fibroid is not identified today, although the area appears diffusely heterogeneous without discrete margins. Multiple fibroids were not previously identified measuring 2.6 x 2.8 x 2.3 cm on the left, 1.3 x 1.3 x 1.2 cm left fundal, and 1.3 x 1.2 x 1.7 cm right fundal. Trace amount of free fluid in the cervix. The endometrial thickness is 1.0 cm. Unremarkable bilateral ovaries. The right ovary measures 2.8 x 1.6 x 1.7 cm, volume 4.0 mL. The left ovary measures 2.1 x 1.4 x 1.7 cm, volume 2.5 mL. [facility] Medical History Constipation Endometriosis Hypoglycemia Surgical History Hx of laparoscopy Family History Father HTN (hypertension) Diabetes Mother Hypothyroid Maternal Grandfather No problems noted. Maternal Aunt Throat cancer Sister Hypothyroid Social History Household Members: Significant Other Household Members Other:: son Housing: Condominium Are you a primary progressive care unit registered nurse to a significant other at home: No Do you presently have visiting nurse or other home services: No Alcohol intake: never Patient Tobacco Use Status: Never used Tobacco service: No Current occupational status: employed Current occupation: Sail rep Sexual orientation: Straight/Heterosexual Gender identity: Female Female Reproductive History Menstrual Age of Menarche: 10 Date of last menstrual period: 10/27/22 control method: pills Date of last pap smear: 07/23/20 (negative) Review of Systems Const All systems reviewed & are unremarkable except as noted in HPI and below Reports as per HPI and Reports no additional complaints GI Reports no additional complaints Reports no additional complaints Physical Exam Vital Signs: Last Vital Signs BP 118/70 10/31/22 10:21 BMI result Body Mass Index 27.6 Assessment & Plan Assessment & Plan (1) Myoma: Code(s): D21.9 - Benign neoplasm of connective and other soft tissue, unspecified Plan: Discussed with the patient the findings on pelvic ultrasound & the risk of myosarcoma; discussed with the patient the options of treatment including expectant management versus hysterectomy; the pros and cons, risks benefits of each approach were discussed with the patient including the fact that in cases of myosarcoma, surgical treatment can lead to early diagnosis and positively affects the prognosis; after further discussion, the patient decided to proceed with expectant management since she is interested in future . Will repeat pelvic ultrasound in 6 months. Instructions given to patient to call in case any of the following occurs: pressure symptoms, abnormal uterine bleeding, pelvic pain; and to schedule 6 months ultrasound follow-up appointment . All questions answered, the patient verbalized understanding and agreed with the plan . Orders: Orders US pelvic and transvaginal 6 Months D21.9 - Benign neoplasm of connective and other soft tissue, unspecified Coding Level of Care Code Est Pt Level 3 (14920) Diagnoses Myoma D21.9
== END 2022-10-31 10:50 | disposition home or self-care (01) ==
LOC: HO.HWS 10:17
PROVIDERS: Visit Provider Obstetrics & Gynecology
DX: D21.9 Benign neoplasm of connective and other soft tissue, unspecified (principal)
CPT/HCPCS: 99213

== ENCOUNTER → 2022-10-31 10:17 | Outpatient (BNVA) | payer OTHER, SELFPAY | PROVIDERS: Visit Provider Obstetrics & Gynecology | DX: D21.9 Benign neoplasm of connective and other soft tissue, unspecified (principal) | CPT/HCPCS: 99212 ==

== ENCOUNTER 2023-03-26 08:08 | Emergency (ER) | payer OTHER, SELFPAY ==
[2023-03-26 08:12] VITALS: BP 154/94; PULSE 91; RESP 18; TEMP 36.6; O2SAT 100; BMI 25.5
[2023-03-26 08:26] LABS: MANUAL DIFF FLAG NO
[2023-03-26 08:27] LABS: Basophils Percent Auto 0.5 % (0-2); Eosinophils Absolute Auto 0.3 X10*3/uL (0.0-0.4); Eosinophils Percent Auto 5.2 % (0-4); Hematocrit 39.7 % (37.0-47.0); Hemoglobin 13.4 g/dl (12.0-16.0); Lymphocytes Percent Auto 31.1 % (20-40); Mean Corpuscular HGB Conc 33.8 g/dl (31.0-35.0); Mean Corpuscular Hemoglobin 31.9 pg (27.0-33.0); Mean Corpuscular Volume 94.5 fL (80.0-98.0); Mean Platelet Volume 9.9 fL (9.4-12.3); Monocytes Absolute Auto 0.5 X10*3/uL (0.1-1.2); Monocytes Percent Auto 7.2 % (2-11); Neutrophils Absolute Auto 3.6 x10*3/uL (2.0-8.3); Platelet Count 341 X10*3/uL (160-400); White Blood Count 6.4 X10*3/uL (4.8-10.8)
[2023-03-26 08:44] LABS: Anion Gap 10 (12-20); Blood Urea Nitrogen 7 mg/dL (9-16); Calcium 9.3 mg/dL (8.4-10.2); Carbon Dioxide 21 mmol/L (22-29); Chloride 108 mmol/L (96-108); Creatinine Clr Calc Pharmacy 101.2; Estimated Glomerular Filt Rate > 60; Glucose Random 136 mg/dL (60-115); Potassium 2.9 mmol/L (3.3-5.1); Sodium 136 mmol/L (135-145)
--- NOTE | 2023-03-26 09:15 | ED.GENADULT ---
HPI - General Adult General Chief complaint: Vaginal Bleeding Stated complaint: vaginal bleeding Time Seen by Provider: 03/26/23 09:14 Source: patient Mode of arrival: ambulatory Limitations: no limitations History of Present Illness HPI narrative: 38 year-old female with history of endometriosis and fibroids arrives to the emergency department with a complaint of prolonged period of 11 days, since 03/15/2023. She states that her periods are usually heavier and lighten on the fourth day. She reports that she has to change her menstrual cup every 2 hours. She had a similar episode in June 2022 with two weeks of excessive bleeding. She reports her current bleeding has improved after taking supplemental iron, vitamin C, and NSAIDs. She states that her bleeding has lightened this morning as she has not emptied her menstrual cup since 5am on 03/26/2023. She states she feels tired, mild dizziness, and shaky which are similar symptoms to last June. She states she is currently in a monogamous relationship. She denies fever, weight loss, night sweats, chills, chest pain, palpitations, shortness of breath, lightheadedness, loss of vision, vision changes, double vision, abdominal pain, nausea, vomiting, bruising, skin changes, changes in bowel movements, and changes in urination. Onset (ago): day(s) () Treatments prior to arrival: NSAID and other (Vitamin C and Iron supplements) Related Data Previous Rx's Medication Instructions Recorded norgestrel 0.3 mg-ethinyl 1 tab PO DAILY 90 days #90 tabs 05/12/22 estradiol 30 mcg tablet (Humberto (28)) Allergies Allergy/AdvReac Type Severity Reaction Status Date / Time No Known Allergies Allergy Verified 03/26/23 08:18 Review of Systems Constitutional: Constitutional: Reports no additional constitutional complaints, Denies chills, Denies fever(s) and Denies night sweats Eyes: Eyes: Reports no additional eye complaints, Denies blurry vision, Denies change in vision, Denies diplopia, Denies eye discharge, Denies loss of vision and Denies eye pain ENT: Denies dizziness Cardiovascular: Cardiovascular: Reports no additional cardiovascular complaints, Denies chest pain, Denies lightheadedness, Denies Loss of Consciousness and Denies dyspnea Respiratory: Respiratory: Reports no additional respiratory complaints and Denies dyspnea Gastrointestinal: Gastrointestinal: Reports no additional gastrointestinal complaints, Denies abdominal pain, Denies melena, Denies hematochezia, Denies change in bowel habits and Denies change in stool character Genitourinary: Genitourinary: Denies hematuria, Denies urinary frequency, Denies dysuria, Denies urinary incontinence, Denies urinary hesitancy and Denies urinary urgency Comments: vaginal bleeding Musculoskeletal: Musculoskeletal: Reports no additional musculoskeletal complaints, Denies numbness and Denies tingling Neurologic: Denies dizziness, Denies loss of vision, Denies numbness and Denies tingling Psychiatric: Psychiatric: Reports no additional psychiatric complaints Endocrine: Endocrine: Reports no additional endocrine complaints Hematologic/Lymphatic: Hematologic/Lymphatic: Reports no additional hematologic/lymphatic complaints Allergic/Immunologic: Allergic/Immunologic: Reports no additional allergic/immunologic complaints [facility] Past Medical History Attestation statement: The following information was validated with the patient. Source: old records reviewed and nursing notes reviewed Onset Date is defined in the Problem List Problems that require an onset date and time if occurred within 24 hrs of arrival to the ED Aortic Dissection and Rupture; Neurologic impairment; Cardiopulmonary Arrest; Endotracheal Intubation; Insertion or Replacement of Mechanical Circulatory Assist Device Medical History Constipation Endometriosis Hypoglycemia Surgical History Hx of laparoscopy Family History Family History Father HTN (hypertension) Diabetes Mother Hypothyroid Maternal Grandfather No problems noted. Maternal Aunt Throat cancer Sister Hypothyroid Social History Social History Household Members: Significant Other Household Members Other:: son Housing: Condominium Are you a primary daycare manager to a significant other at home: No Do you presently have visiting nurse or other home services: No Alcohol intake: never Patient Tobacco Use Status: Never used Tobacco Advance Directives: No Advance Directives Information Provided: No service: No Current occupational status: employed Current occupation: Sail rep Sexual orientation: Straight/Heterosexual Gender identity: Female Physical Exam ED Vital Signs: Vital Signs - 24 hr 03/26/23 08:12 Temperature 97.8 F Pulse Rate 91 Respiratory Rate 18 Blood Pressure 154/94 H Pulse Oximetry 100 Oxygen Delivery Method Room Air BMI result Body Mass Index 25.5 Const General: cooperative, no acute distress, alert and awake Nutritional Appearance: well nourished Orientation/consciousness: patient oriented x3 Limitations: no limitations HENMT Head: Yes normal to inspection and Yes atraumatic Ears: hearing grossly normal bilaterally and external ears normal General nose exam: Normal external nose present, no nasal discharge noted and no epistaxis Face and sinus: Yes normal facial exam, No abrasion and No laceration Mouth: Normal oral and palatal mucosa present, no drooling and no muffled voice Eyes General: appearance normal, both eyes and all related structures Periorbital: periorbital findings normal Eyelids: Yes eyelids normal Conjunctivae: conjunctivae normal Pupils: Equal, round and reactive pupils present EOM: EOMs intact bilaterally Neck Neck: Yes normal visual inspection, Yes full ROM and Yes no lymphadenopathy Chest Chest palpation & inspection: normal inspection of the chest Resp Effort & Inspection: normal respiratory effort and able to speak in complete sentences GI Inspection: Yes normal to inspection Palpation (GI): Soft to palpation, not firm, nontender, no guarding and not rigid Neuro General: patient oriented x3 and moves all extremities Cranial nerves: Yes Equal, round and reactive pupils present Cognition (Neuro): normal cognition Motor exam (neuro): 5/5 motor strength present throughout Sensory Exam: Normal double simultaneous stimulation for sensation Coordination: [id number] test normal Extrem General: Yes normal to inspection, Yes full ROM and Yes capillary refill normal Psych Appearance: grossly normal Mental Status: mental status grossly normal Affect: normal affect Attitude: cooperative Thought process: Normal thought process present Thought content: Normal thought content present Insight: Good insight present (Psych) Medications Administered Discontinued Medications Generic Name Dose Route Start Last Admin Trade Name Freq PRN Reason Stop Dose Admin Potassium Chloride 40 meq 03/26/23 09:15 03/26/23 09:56 Potassium Chloride Er 20 Meq Tab.Er.Prt PO 03/26/23 09:16 40 meq ONCE ONE Administration Medical Decision Making Medical Decision Making [facility] Narrative: Patient is a 38 year old assigned female at with a history of endometriosis and uterine fibroids presenting to the emergency department today with 10 days of vaginal bleeding. Patient's physical exam was unremarkable. Patient's blood work showed a potassium of 2.9 but was otherwise unremarkable. Patient's EKG was unremarkable. I explained my physical exam findings as well as all test results to the patient. I answered all questions asked by the patient. Patient was given PO potassium while in the department and encouraged to eat potassium rich foods. I stressed the importance of the patient taking her medication as prescribed. I stressed the importance of the patient following up with her primary care provider and her OBGYN. I stressed the importance of the patient returning to the emergency department immediately if her symptoms were to worsen or if she were to develop any dizziness, shortness of breath, difficulty breathing, chest pain, blurry vision, loss of vision, nausea, vomiting, abdominal pain, fever, chills, back pain, or any other complaints. Patient verbalized agreement and understanding with this treatment plan and discharge. Differential Diagnosis Differential Diagnoses: The differential diagnosis associated with the presentation includes Vaginal bleeding Uterine fibroids Admission/Observation Consideration of admission/observation: Escalation of care including admission/observation considered Patient would have been admitted to the hospital had her work up had any findings where hospital admission was appropriate and her clinical presentation warranted hospital admission. Lab Data [facility] Lab Attestation statement: I reviewed the patient's lab results. My interpretation of these results are in the [facility] Rationale portion of this note. 03/26/23 08:22 03/26/23 08:22 Labs: Lab Results 03/26/23 Range/Units 08:22 WBC 6.4 (4.8-10.8) X10*3/uL RBC 4.20 (4.20-5.50) X10*6/uL Hgb 13.4 D (12.0-16.0) g/dl Hct 39.7 (37.0-47.0) % MCV 94.5 (80.0-98.0) fL MCH 31.9 (27.0-33.0) pg MCHC 33.8 (31.0-35.0) g/dl RDW 13.0 (11.0-16.0) % Plt Count 341 D (160-400) X10*3/uL MPV 9.9 (9.4-12.3) fL Immature Gran % (Auto) 0.0 (0.0-0.4) % Neut % (Auto) 56.0 (45-73) % Lymph % (Auto) 31.1 (20-40) % [place] % (Auto) 7.2 (2-11) % Eos % (Auto) 5.2 H (0-4) % Baso % (Auto) 0.5 (0-2) % Lymph # (Auto) 2.0 (1.2-4.9) X10*3/uL [place] # (Auto) 0.5 (0.1-1.2) X10*3/uL Eos # (Auto) 0.3 (0.0-0.4) X10*3/uL Baso # (Auto) 0.0 (0.0-0.2) X10*3/uL Abs Immat Gran (auto) 0.00 (0.00-0.03) X10*3/uL Absolute Neuts (auto) 3.6 (2.0-8.3) x10*3/uL Absolute Nucleated RBC 0.000 (0.0-0.012) X10*3/uL Nucleated RBC % (auto) 0.0 (0.0-0.2) /100WBC Sodium 136 (135-145) mmol/L Potassium 2.9 L* (3.3-5.1) mmol/L Chloride 108 (96-108) mmol/L Carbon Dioxide 21 L (22-29) mmol/L Anion Gap 10 L (12-20) BUN 7 L (9-16) mg/dL Creatinine 0.78 (0.5-1.4) mg/dL Estim Creat Clear Calc 101.2 Estimated GFR > 60 Random Glucose 136 H (60-115) mg/dL Calcium 9.3 D (8.4-10.2) mg/dL Magnesium 1.6 (1.6-2.6) mg/dL Beta HCG, Quant < 2 mIU/mL Independent Interpretation I performed an independent interpretation of an: EKG Interpretation: Vent. Rate: 068 BPM Atrial Rate: 068 BPM P-R Int: 148 ms QRS Dur: 112 ms QT Int: 394 ms P-R-T Axes: 059 028 011 degrees QTc Int: 418 ms Normal sinus rhythm Incomplete right bundle branch block Septal infarct , age undetermined Abnormal ECG When compared with ECG of 04-JUL-2021 18:36, Septal infarct is now Present QT has shortened DD/ 0948 Radiology Impression Discussion of test interpretation with radiology: I have reviewed the radiologist's reading. Discharge Plan Discharge Clinical Impression: Abnormal uterine bleeding (AUB), Hypokalemia Patient Disposition: Home, Self-Care Instructions: Dysfunctional Uterine Bleeding (ED), Potassium Content of Foods List (ED), Hypokalemia (ED) Additional Instructions: Follow up with your primary care provider and your OBGYN. Return to the emergency department immediately if your symptoms worsen or if you develop any dizziness, shortness of breath, difficulty breathing, chest pain, blurry vision, loss of vision, nausea, vomiting, abdominal pain, fever, chills, back pain, or any other complaints. Prescriptions: No Action Cryselle (28) 0.3-30 mg-mcg tablet 1 tab PO DAILY 90 Days Qty: 90 3RF Rx Instructions: Take 1 tablet a day continuously for 90 days then 1 week off Referrals: [facility] [Provider Group] (Call to establish and follow up with a primary care provider. If you already have a primary care provider, please follow up with them.) [facility] Primary Care, [facility] [Provider Group] (Call to establish and follow up with a primary care provider. If you already have a primary care provider, please follow up with them.) [facility] Primary Care,Dominic [Provider Group] (Call to establish and follow up with a primary care provider. If you already have a primary care provider, please follow up with them.) Nishant Julio MD [Physician] - (Follow up with your OBGYN. ) Print Language: Angolan
--- NOTE | 2023-03-26 09:16 | ECG_ITS ---
Test Reason : hypokalemia Blood Pressure : / mmHG Vent. Rate : 068 BPM Atrial Rate : 068 BPM P-R Int : 148 ms QRS Dur : 112 ms QT Int : 394 ms P-R-T Axes : 059 028 011 degrees QTc Int : 418 ms Normal sinus rhythm Incomplete right bundle branch block Borderline ECG When compared with ECG of 04-JUL-2021 18:36, No significant changes seen Referred By: Tamiko Rodas Electronically Signed By:JORDNAA GIFFORD
[2023-03-26 09:37] LABS: Magnesium 1.6 mg/dL (1.6-2.6)
[2023-03-26 09:46] LABS: HCG Quantitative < 2 mIU/mL
[2023-03-26] MEDS: Potassium Chloride ER 20 MEQ TAB.ER.PRT 40 MEQ PO (09:56)
== END 2023-03-26 11:21 | disposition home or self-care (01) ==
PROVIDERS: Physician Assistant Medical; Emergency Provider Emergency Medicine
DX: N93.8 Other specified abnormal uterine and vaginal bleeding (principal); E87.6 Hypokalemia; I45.10 Unspecified right bundle-branch block; Z79.899 Other long term (current) drug therapy
CPT/HCPCS: 36415; 80048; 83735; 84702; 85025; 93005; 99283; 99284

== ENCOUNTER → 2023-03-26 09:16 | Outpatient (BNV) | payer OTHER, SELFPAY | PROVIDERS: Emergency Provider Emergency Medicine; Visit Provider Internal Medicine | DX: E87.6 Hypokalemia (principal) | CPT/HCPCS: 93010 ==

== ENCOUNTER 2023-04-02 15:06 | Outpatient (REF) | payer MEDICAID, SELFPAY ==
[2023-04-02 16:22] LABS: Hematocrit 44.9 % (37.0-47.0); Hemoglobin 14.9 g/dl (12.0-16.0)
[2023-04-02 18:18] LABS: Anion Gap 13 (12-20); Blood Urea Nitrogen 8 mg/dL (9-16); Calcium 9.9 mg/dL (8.4-10.2); Carbon Dioxide 25 mmol/L (22-29); Chloride 107 mmol/L (96-108); Estimated Glomerular Filt Rate > 60; Glucose Random 87 mg/dL (60-115); Iron 39 mcg/dL (30-160); Percent Iron Saturation 11 % (15-50); Potassium 4.3 mmol/L (3.3-5.1); Sodium 141 mmol/L (135-145); Total Iron Binding Capacity 365 mcg/dL (228-428); Unsaturated Iron Binding 326 ug/dL
[2023-04-03 13:01] LABS: HIV AB/AG Nonreactive (Nonreactive); HIV Num 1 0.06 S/CO (0.00-0.99)
[2023-04-04 12:53] LABS: RPR Rapid Plasma Reagin NON-REACTIVE (NON-REACTIVE)
== END 2023-04-02 15:07 | disposition home or self-care (01) ==
LOC: HO.HHCL 15:06
PROVIDERS: Visit Provider Nurse Practitioner Primary Care
DX: Z11.3 Encounter for screening for infections with a predominantly sexual mode of transmission (principal); Z11.4 Encounter for screening for human immunodeficiency virus [HIV]; D50.9 Iron deficiency anemia, unspecified; E87.6 Hypokalemia
CPT/HCPCS: 36415; 80048; 83540; 85014; 85018; 86592; 87389

== ENCOUNTER 2023-04-09 12:30 | Outpatient (AMB) | payer OTHER, SELFPAY ==
--- NOTE | 2023-04-09 12:31 | A.OFFVIS_ITS ---
Intake Vital Signs 04/09/23 12:32 Height 5 ft 5 in Weight 158 lb BMI 26.3 BP 124/80 Intake Visit Reasons: BP check per /DO NOT RS Allergies No Known Allergies Allergy (Verified 04/09/23 12:31) Is last menstrual period known: Yes Last menstrual period: 03/19/23 HPI HPI Comments History of Present Illness Details Presenting for control pill refill and blood pressure check. Last blood pressure check was elevated. The patient is doing well with no complaints, her menstrual cycles are regular and light. [facility] Medical History Constipation Endometriosis Hypoglycemia Surgical History Hx of laparoscopy Family History Father HTN (hypertension) Diabetes Mother Hypothyroid Maternal Grandfather No problems noted. 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 Sexual orientation: Straight/Heterosexual Gender identity: Female Female Reproductive History Menstrual Age of Menarche: 10 Date of last menstrual period: 03/19/23 Review of Systems Const All systems reviewed & are unremarkable except as noted in HPI and below Reports as per HPI and Reports no additional complaints GI Reports no additional complaints Reports no additional complaints Physical Exam Vital Signs: Last Vital Signs BP 124/80 04/09/23 12:32 BMI result Body Mass Index 26.3 Assessment & Plan Assessment & Plan (1) Contraceptive management: Code(s): Z30.9 - Encounter for contraceptive management, unspecified Plan: Blood pressure check within normal, control pills refilled. All questions answered, the patient verbalized understanding. Medications: Refilled norgestrel-ethinyl estradiol 0.3-30 mg-mcg (Humberto (28)) Take 1 tablet a day continuously for 90 days then 1 week off 1 tab PO DAILY 90 tabs 3RF 90 days Coding Level of Care Code Est Pt Level 3 (52487) Diagnoses Contraceptive management Z30.9
[2023-04-09 12:32] VITALS: BP 124/80; BMI 26.3
== END 2023-04-09 14:37 | disposition home or self-care (01) ==
LOC: HO.HWS 12:30
PROVIDERS: Visit Provider Obstetrics & Gynecology
DX: Z30.9 Encounter for contraceptive management, unspecified (principal)
CPT/HCPCS: 99213

== ENCOUNTER → 2023-04-09 12:30 | Outpatient (BNVA) | payer MEDICAID, SELFPAY | PROVIDERS: Visit Provider Obstetrics & Gynecology | DX: Z01.30 Encounter for examination of blood pressure without abnormal findings (principal); Z30.9 Encounter for contraceptive management, unspecified | CPT/HCPCS: 99212 ==

== ENCOUNTER 2023-05-01 10:41 | Outpatient (REF) | payer OTHER, SELFPAY ==
--- NOTE | ~2023-05-01 | US_ITS ---
EXAMINATION: US PELVIS COMPLETE CLINICAL INFORMATION: Myoma; the last menstrual period was on 04/27/2023. COMPARISON: Pelvic ultrasound dated 09/29/2022. TECHNIQUE: Transabdominal and transvaginal imaging were performed. FINDINGS: The uterus is of normal size and echogenicity, measuring 9.0 x 4.6 x 6.3 cm. The uterus is anteverted and anteflexed. A regular homogeneous endometrium is identified measuring 1.1 cm. Nabothian cysts are seen within the cervix. FIBROIDS: There are 3 fibroids seen. 1. Location: Upper leftward body, myometrial. Size: 2.9 x 2.7 x 2.5 cm. Prior: 2.6 x 2.8 x 2.3 cm. Fibroid characteristics: Hypoechoic. 2. Location: Upper rightward body, submucosal. Size: 1.3 x 1.3 x 1.4 cm. Prior: 1.3 x 1.2 x 1.7 cm. Fibroid characteristics: Hypoechoic. 3. Location: Lateral leftward fundus, subserosal. Size: 1.0 x 1.2 x 1.1 cm. Prior: 1.3 x 1.3 x 1.2 cm. Fibroid characteristics: Hypoechoic. Both ovaries are of normal size and echogenicity. The ovaries show normal doppler flow. The right ovary measures 3.1 x 2.0 x 1.8 cm for a volume of 5.7 mL. Physiologic ovarian follicles are incidentally noted. The left ovary measures 3.0 x 2.4 x 1.9 cm for a volume of 7.1 mL. Physiologic ovarian follicles recently noted. There is a small amount of free fluid within the cul-de-sac. No adnexal mass is seen. US/US pelvic and transvaginal IMPRESSION: 1. Uterine fibroids are seen, as detailed. 2. Nabothian cysts are seen within the cervix. 3. There is a small amount of nonspecific free fluid in the cul-de-sac.
== END 2023-05-01 10:42 | disposition home or self-care (01) ==
LOC: HO.US 10:41
PROVIDERS: Visit Provider Obstetrics & Gynecology
DX: D21.9 Benign neoplasm of connective and other soft tissue, unspecified (principal)
CPT/HCPCS: 76830; 76856

== ENCOUNTER 2023-05-15 10:28 | Outpatient (AMB) | payer OTHER, SELFPAY ==
--- NOTE | 2023-05-15 10:31 | MHC.OFFVIS ---
Intake Vital Signs 05/15/23 10:36 Height 5 ft 5 in Weight 158 lb BMI 26.3 BP 122/78 Intake Visit Reasons: US follow up [employer] Pump Tender Required: No Information Interpreted: non-clinical & clinical Economic Analysis Director: Economic Analysis Director Present Accompanied by: Self / Same As Patient Allergies No Known Allergies Allergy (Verified 05/15/23 10:32) Is last menstrual period known: Yes Last menstrual period: 04/25/23 Post menopausal: No Patient : No HPI HPI Comments History of Present Illness Details Presenting for follow-up ultrasound regarding multiple myoma seen previously on ultrasound. No pelvic pressure or pain or abnormal uterine bleeding. Ultrasound done recently showed the following: The uterus is of normal size and echogenicity, measuring 9.0 x 4.6 x 6.3 cm. The uterus is anteverted and anteflexed. A regular homogeneous endometrium is identified measuring 1.1 cm. Nabothian cysts are seen within the cervix. FIBROIDS: There are 3 fibroids seen. 1. Location: Upper leftward body, myometrial. Size: 2.9 x 2.7 x 2.5 cm. Prior: 2.6 x 2.8 x 2.3 cm. Fibroid characteristics: Hypoechoic. 2. Location: Upper rightward body, submucosal. Size: 1.3 x 1.3 x 1.4 cm. Prior: 1.3 x 1.2 x 1.7 cm. Fibroid characteristics: Hypoechoic. 3. Location: Lateral leftward fundus, subserosal. Size: 1.0 x 1.2 x 1.1 cm. Prior: 1.3 x 1.3 x 1.2 cm. Fibroid characteristics: Hypoechoic. Both ovaries are of normal size and echogenicity. The ovaries show normal doppler flow. The right ovary measures 3.1 x 2.0 x 1.8 cm for a volume of 5.7 mL. Physiologic ovarian follicles are incidentally noted. The left ovary measures 3.0 x 2.4 x 1.9 cm for a volume of 7.1 mL. Physiologic ovarian follicles recently noted. There is a small amount of free fluid within the cul-de-sac. No adnexal mass is seen. PFSH Medical History Constipation Endometriosis Hypoglycemia Surgical History Hx of laparoscopy Family History Father HTN (hypertension) Diabetes Mother Hypothyroid Maternal Grandfather No problems noted. Maternal Aunt Throat cancer Sister Hypothyroid Social History Household Members: Significant Other Household Members Other:: son Housing: Condominium Are you a primary medicare coordinator to a significant other at home: No Do you presently have visiting nurse or other home services: No Alcohol intake: never Patient Tobacco Use Status: Never used Tobacco Patient : No service: No Current occupational status: employed Current occupation: Sail rep Sexual orientation: Straight/Heterosexual Gender identity: Female Female Reproductive History Menstrual Age of Menarche: 10 Date of last menstrual period: 04/25/23 Review of Systems Const All systems reviewed & are unremarkable except as noted in HPI and below Reports as per HPI and Reports no additional complaints GI Reports no additional complaints Reports no additional complaints Physical Exam Vital Signs: Last Vital Signs BP 122/78 05/15/23 10:36 BMI result Body Mass Index 26.3 Results AMB Test Urine AMB Test Urine Negative Last Edit by Laurel Sweet MA on 05/15/23 10:46 Results Reviewed Results Reviewed: Laboratory Last Values Tst Clinic Negative 05/15/23 10:45 Assessment & Plan Assessment & Plan (1) Myoma: Code(s): D21.9 - Benign neoplasm of connective and other soft tissue, unspecified Plan: Discussed with the patient the findings on pelvic ultrasound & the risk of myosarcoma; discussed with the patient the options of treatment including expectant management versus hysterectomy; the pros and cons, risks benefits of each approach were discussed with the patient including the fact that in cases of myosarcoma, surgical treatment can lead to early diagnosis and positively affects the prognosis; after further discussion, the patient decided to proceed with expectant management. Will repeat pelvic ultrasound periodically. Instructions given to patient to call in case any of the following occurs: pressure symptoms, abnormal uterine bleeding, pelvic pain; and to schedule a future office follow-up appointment for reassessment and to order a repeat ultrasound . All questions answered, the patient verbalized understanding and agreed with the plan . Orders: Orders AMB HCG Urine Test Today Z32.02 - Encounter for test, result negative Coding Level of Care Code Est Pt Level 3 (28487) Diagnoses Myoma D21.9
[2023-05-15 10:36] VITALS: BP 122/78; BMI 26.3
== END 2023-05-15 12:28 | disposition home or self-care (01) ==
LOC: HO.HWS 10:29
PROVIDERS: Visit Provider Obstetrics & Gynecology
DX: Z32.02 Encounter for pregnancy test, result negative (principal); D21.9 Benign neoplasm of connective and other soft tissue, unspecified
CPT/HCPCS: 99213

== ENCOUNTER → 2023-05-15 10:28 | Outpatient (BNVA) | payer OTHER, SELFPAY | PROVIDERS: Visit Provider Obstetrics & Gynecology | DX: D21.9 Benign neoplasm of connective and other soft tissue, unspecified (principal) | CPT/HCPCS: 81025; 99212 ==

== ENCOUNTER 2023-09-14 13:50 | Emergency (ER) | payer OTHER, SELFPAY ==
[2023-09-14] VITALS (8 sets, daily range): BP systolic 97–129; BP diastolic 54–76; PULSE 80–101; RESP 12–17; TEMP 36.8–37.2; O2SAT 99–100; BMI 25.6
--- NOTE | ~2023-09-14 | CT_ITS ---
EXAMINATION: CT HEAD WITHOUT CONTRAST CLINICAL INFORMATION: Head pressure and pain. COMPARISON: None. TECHNIQUE: Contiguous axial imaging was performed from the skullbase to vertex without intravenous administration of contrast. This CT examination was performed using dose optimization techniques as appropriate, variously including the following: *Automated exposure control *Adjustment of mA and/or kV according to patient size (this includes techniques or standardized protocols for targeted exams where dose is matched to indication/reason for exam; i.e. extremities or head) *Use of iterative reconstruction technique DLP: 680 mGy-cm. FINDINGS: There is no evidence of acute intracranial hemorrhage or territorial infarction. No abnormal mass effect or midline shift is seen. Christianson to white matter differentiation is well preserved. No extra-axial fluid collections are identified. The ventricles are normal in size. There is no abnormal attenuation within the brain parenchyma. The osseous structures and soft tissues are normal. The mastoid air cells and visualized portions of the paranasal sinuses are fairly well aerated. CT/CT head/brain wo IV con IMPRESSION: No acute intracranial pathology.
--- NOTE | 2023-09-14 14:15 | ED_ITS ---
HPI - General Adult General Chief complaint: General Medical Stated complaint: Vaginal bleeding 9 days, headache Time Seen by Provider: 09/14/23 21:19 Source: patient Mode of arrival: ambulatory Limitations: no limitations History of Present Illness ED Provider: Sumit Evans PA-C HPI narrative: 38 year old female with a PMHx of uterine fibroids, endometriosis, hypoglycemia, and constipation presents to the ER today due to 9 days of vaginal bleeding with handful amounts of blood clots, having to change her overnight pad every 40 minutes. Currently not on any contraception, actively trying to conceive. She took magnesium and B6 two days to help relieve symptoms. Her vaginal bleeding stopped this morning however, around 11 am had throbbing headache, palpitations and lightheaded when ambulating. Denies symptoms when stationary. 1 year ago received 2 bags of blood infusion due to anemia with no complications. In July 2023, she was seen in the ER due to similar symptoms and was given oral magnesium which stopped the bleeding. Takes OTC iron every 2 days rather than daily due to chronic constipation. Denies odd vaginal discharge, odor, or pruritus. No urinary symptoms, back, abdominal or flank pain. No fever, chills, N/V. Onset (ago): day(s) Severity: moderate Pain Consistency: intermittent Relieving factors: rest Exacerbating factors: movement Associated symptoms: shortness of breath and weakness Treatments prior to arrival: none Related Data Home Medications ?Medication ?Instructions ?Recorded ?Confirmed albuterol sulfate 90 mcg/actuation 2 puff inhalation Q4H PRN 04/09/23 aerosol inhaler Allergies Allergy/AdvReac Type Severity Reaction Status Date / Time No Known Allergies Allergy Verified 09/14/23 14:18 Review of Systems 2 Review of Systems: Yes all other systems are reviewed and are negative [facility] Past Medical History Medical History Constipation Endometriosis Hypoglycemia Surgical History Hx of laparoscopy Family History Family History Father HTN (hypertension) Diabetes Mother Hypothyroid Maternal Grandfather No problems noted. Maternal Aunt Throat cancer Sister Hypothyroid Social History Social History Household Members: Significant Other Household Members Other:: son Housing: Condominium Are you a primary occasional caregiver to a significant other at home: No Do you presently have visiting nurse or other home services: No Alcohol intake: never Patient Tobacco Use Status: Never used Tobacco Smoked in Last 30 Days: No Use of substances other than those prescribed or required for medical reasons: No Advance Directives: No Advance Directives Information Provided: No Do you have a plan to hurt others: No Plan service: No Current occupational status: employed Current occupation: [employer] Sexual orientation: Straight/Heterosexual Gender identity: Female Physical Exam ED Vital Signs: Vital Signs - 24 hr 09/14/23 14:13 09/14/23 19:32 09/14/23 19:37 Temperature 98.9 F 98.3 F Pulse Rate 95 83 80 Respiratory Rate 15 16 Blood Pressure 129/76 118/63 108/59 L Pulse Oximetry 99 100 Oxygen Delivery Method Room Air Room Air 09/14/23 19:38 09/14/23 19:39 09/14/23 22:00 Temperature 98.2 F Pulse Rate 101 H 91 99 Respiratory Rate 12 Blood Pressure 117/64 112/71 114/68 Pulse Oximetry 99 Oxygen Delivery Method Room Air 09/14/23 22:28 09/14/23 22:44 Temperature 98.4 F 98.2 F Pulse Rate 100 99 Respiratory Rate 17 15 Blood Pressure 98/54 L 97/57 L Pulse Oximetry Oxygen Delivery Method BMI result Body Mass Index 25.6 Appearance: Alert. Oriented X3. No acute distress. Head: normocephalic, atraumatic. Eyes: Pupils equal, round and reactive to light. ENT: Pharynx normal. No tonsillar swelling or exudate. Neck: Normal inspection. Neck supple. CVS: Normal heart rate and rhythm. Pulses normal. Respiratory: No respiratory distress. Breath sounds normal. Abdomen: Soft and nontender. +BS x4 Skin: Skin warm and dry Extremities: No lower extremity edema. No joint swelling. Neuro/psych: Oriented X 3. No motor deficit. No sensory deficit. CN II-XII intact. Normal speech and cognition. Course Course Course Narrative: This is an RME done by MYRANDA Reyes: Additional HPI, ROS, PE not included below will be deferred to primary provider. 38 yo f presents w/ vaginal bleeding X 9 days yesterday stopped bleeding and headache, feeling unwell like shes hungover. Has had a hx of iron deficiency anemia needing transfusion so she wants to check her lab values. Appearance: Alert.? Oriented X3.? No acute cardiopulmonary distress distress.? Head: Normocephalic, atraumatic, no step-offs or deformities CVS: Pulses normal.? Respiratory: No respiratory distress.? Abdomen: Soft and nontender.? Skin: ? Normal skin color. Extremities: 5/5 strength to bilateral upper and lower extremities Neuro: Oriented X 3.? No motor deficit.? No sensory deficit. Medications Administered Discontinued Medications Generic Name Dose Route Start Last Admin Trade Name Freq PRN Reason Stop Dose Admin Sodium Chloride 100 mls @ 100 mls/hr 09/14/23 21:35 09/14/23 22:32 Ns IV 09/14/23 22:34 100 mls/hr ONCE ONE Administration Medical Decision Making Medical Decision Making [facility] Narrative: 38 year old female with a PMHx of uterine fibroids, endometriosis, hypoglycemia, and constipation presents to the ER today due to 9 days of vaginal bleeding with handful amounts of blood clots. On arrival to the ER, patient is hemodynamically stable. Today she is symptomatic with throbbing headache, lightheadedness, palpitations and dyspnea with ambulation. Her vaginal bleeding stopped this morning. Labs are consistent with acute anemia, RBC 2.47, HGB 7.7, HCT 23 all other labs are unremarkable. Given her symptoms and labs we will plan to transfuse her, no need to do pelvic ultrasound or pelvic exam due to no current bleeding. Will monitor patient, plan to discharge if no complications, and advise patient to follow up with OBGYN. Differential Diagnosis Differential Diagnoses: The differential diagnosis associated with the presentation includes Acute loss of anemia due to fibroids, dysfunctional uterine bleeding, miscarriage, metrorrhagia, iron deficiency anemia, low clinical suspicion for GI bleeding, Admission/Observation Consideration of admission/observation: Escalation of care including admission/observation considered Anemia requiring blood transfusion, considered admission Lab Data [facility] Lab Attestation statement: I reviewed the patient's lab results. Acute normocytic anemia 09/14/23 14:29 09/14/23 14:29 Labs: Lab Results 09/14/23 09/14/23 09/14/23 Range/Units 14:29 16:38 20:36 WBC 8.5 (4.8-10.8) X10*3/uL RBC 2.47 L D (4.20-5.50) X10*6/uL Hgb 7.7 L D (12.0-16.0) g/dl Hct 23.0 L D (37.0-47.0) % MCV 93.1 (80.0-98.0) fL MCH 31.2 (27.0-33.0) pg MCHC 33.5 (31.0-35.0) g/dl RDW 14.2 (11.0-16.0) % Plt Count 308 (160-400) X10*3/uL MPV 9.9 (9.4-12.3) fL Immature Gran % (Auto) 0.4 (0.0-0.4) % Neut % (Auto) 57.2 (45-73) % Lymph % (Auto) 31.1 (20-40) % Josephine % (Auto) 7.4 (2-11) % Eos % (Auto) 3.7 (0-4) % Baso % (Auto) 0.2 (0-2) % Lymph # (Auto) 2.7 (1.2-4.9) X10*3/uL Josephine # (Auto) 0.6 (0.1-1.2) X10*3/uL Eos # (Auto) 0.3 (0.0-0.4) X10*3/uL Baso # (Auto) 0.0 (0.0-0.2) X10*3/uL Abs Immat Gran (auto) 0.03 (0.00-0.03) X10*3/uL Absolute Neuts (auto) 4.9 (2.0-8.3) x10*3/uL Absolute Nucleated RBC 0.000 (0.0-0.012) X10*3/uL Nucleated RBC % (auto) 0.0 (0.0-0.2) /100WBC PT 12.2 (11.1-13.3) SEC INR 1.0 (0.9-1.1) Sodium 139 (135-145) mmol/L Potassium 3.9 (3.3-5.1) mmol/L Chloride 108 (96-108) mmol/L Carbon Dioxide 25 (22-29) mmol/L Anion Gap 10 L (12-20) BUN 9 (9-16) mg/dL Creatinine 0.78 (0.5-1.4) mg/dL Estim Creat Clear Calc 101.2 Estimated GFR > 60 Random Glucose 99 (60-115) mg/dL Calcium 9.9 (8.4-10.2) mg/dL Total Bilirubin 0.3 (0.0-1.0) mg/dL AST 29 (5-31) U/L ALT 25 (0-31) U/L Alkaline Phosphatase 67 (39-117) U/L Total Protein 6.8 (6.5-8.0) g/dL Albumin 3.8 (3.5-5.0) g/dL Beta HCG, Quant < 2 mIU/mL Urine Color Yellow Urine Appearance Clear Urine pH 6.0 (5.0-9.0) Ur Specific [place] 1.020 (1.005-1.025) Urine Protein Negative (Neg-Trace) mg/dL Urine Glucose (UA) Negative (Negative) mg/dL Urine Ketones Trace (Negative) mg/dL Urine Blood Negative (Negative) Urine Nitrite Negative (Negative) Ur Leukocyte Esterase Trace H (Negative) Urine RBC 0-2 (0-2) /HPF Urine WBC 6-10 H (0-5) /HPF Ur Squamous Epith Cells 3-5 (0-2) /HPF Urine Bacteria 1+ (None Seen) Hyaline Casts 0-2 (0-2) /LPF Blood Type O Positive Antibody Screen NEGATIVE Crossmatch See Detail External Record Review External record reviewed: Outpatient record, Prior outpatient labs and Prior outpatient radiology Tests considered The following testing was considered but not selected: Pelvic ultrasound considered however no active bleeding Prescription Management I considered prescription management with: Other (Iron supplement) Chronic Conditions Patient?s care impacted by: Other (Iron-deficiency anemia, fibroids) Critical Care Time Critical Care Time Critical Care Time: Yes Total Critical Care Time: 36 Attestation: I have personally provided critical care time exclusive of time spent on separately billable procedures. Time includes review of lab data, chart review, arrangement of blood transfusion and treatment of acute blood loss anemia and monitoring for potential decompensation. Intervention performed as documented. Discharge Plan Discharge Clinical Impression: Acute blood loss anemia Patient Disposition: Home, Self-Care Instructions: Acute Posthemorrhagic Anemia (DC) Additional Instructions: Your hemoglobin today was 7.7 with a hematocrit of 23. Your given 1 unit of packed red blood cells. Recommend following up with your OBGYN and your pearl maker. Continue oral iron supplements as tolerated. Recommend adding an osmotic laxative like MiraLax to help with your chronic constipation and help you tolerate iron orally. If you develop new or worsening symptoms call 911 or come back to the ER for further evaluation. Prescriptions: No Action albuterol sulfate 90 mcg/actuation HFA aerosol inhaler 2 puff inhalation Q4H PRN Referrals: [facility] [Provider Group] Nishant Julio MD [Physician] - Print Language: Urdu
[2023-09-14 14:32] LABS: MANUAL DIFF FLAG NO
[2023-09-14 14:39] LABS: Basophils Percent Auto 0.2 % (0-2); Eosinophils Absolute Auto 0.3 X10*3/uL (0.0-0.4); Eosinophils Percent Auto 3.7 % (0-4); Hemoglobin 7.7 g/dl (12.0-16.0); Imm Gran Abs Auto 0.03 X10*3/uL (0.00-0.03); Imm Gran Pct Auto 0.4 % (0.0-0.4); Lymphocytes Absolute Auto 2.7 X10*3/uL (1.2-4.9); Lymphocytes Percent Auto 31.1 % (20-40); Mean Corpuscular HGB Conc 33.5 g/dl (31.0-35.0); Mean Corpuscular Hemoglobin 31.2 pg (27.0-33.0); Mean Corpuscular Volume 93.1 fL (80.0-98.0); Mean Platelet Volume 9.9 fL (9.4-12.3); Monocytes Absolute Auto 0.6 X10*3/uL (0.1-1.2); Monocytes Percent Auto 7.4 % (2-11); Neutrophils Absolute Auto 4.9 x10*3/uL (2.0-8.3); Neutrophils Percent Auto 57.2 % (45-73); Platelet Count 308 X10*3/uL (160-400); Red Blood Count 2.47 X10*6/uL (4.20-5.50); Red Cell Distribution Width 14.2 % (11.0-16.0); White Blood Count 8.5 X10*3/uL (4.8-10.8)
[2023-09-14 14:44] LABS: Prothrombin Time 12.2 SEC (11.1-13.3)
[2023-09-14 14:54] LABS: Alanine Aminotransferase 25 U/L (0-31); Albumin Level 3.8 g/dL (3.5-5.0); Alkaline Phosphatase 67 U/L (39-117); Anion Gap 10 (12-20); Aspartate Amino Transferase 29 U/L (5-31); Bilirubin Total 0.3 mg/dL (0.0-1.0); Blood Urea Nitrogen 9 mg/dL (9-16); Calcium 9.9 mg/dL (8.4-10.2); Carbon Dioxide 25 mmol/L (22-29); Chloride 108 mmol/L (96-108); Creatinine Clr Calc Pharmacy 101.2; Estimated Glomerular Filt Rate > 60; Glucose Random 99 mg/dL (60-115); HCG Quantitative < 2 mIU/mL; Potassium 3.9 mmol/L (3.3-5.1); Sodium 139 mmol/L (135-145); Total Protein 6.8 g/dL (6.5-8.0)
[2023-09-14 20:42] LABS: Appearance Urine Clear; Color Urine Yellow; Glucose Urine UA Negative (Negative); Leukocyte Esterase Urine Trace (Negative); Nitrite Urine Negative (Negative); UMIC TRIGGER UACC YES; Urine Blood Negative (Negative); Urine Ketones Trace mg/dL (Negative); Urine Protein Negative (Neg-Trace)
[2023-09-14 20:45] LABS: Bacteria Urine 1+ (None Seen); Hyaline Casts Urine 0-2 /LPF (0-2); RBC Urine 0-2 /HPF (0-2); UACC Culture Trigger YES
--- NOTE | 2023-09-14 22:31 | PC.NURSE ---
blood transfusion started. vss. afebrile. lung sounds cta. pt reports no reactions to previous infusions.
[2023-09-15 01:08] VITALS: BP 95/58; PULSE 87; RESP 13; TEMP 36.7; O2SAT 100
[2023-09-15 01:55] VITALS: BP 101/64; PULSE 81; RESP 16; TEMP 36.9
[2023-09-15 02:27] VITALS: BP 101/64; PULSE 81; RESP 16; TEMP 36.9; O2SAT 100
== END 2023-09-15 02:27 | disposition home or self-care (01) ==
PROVIDERS: Physician Assistant; Emergency Provider Emergency Medicine
DX: D62 Acute posthemorrhagic anemia (principal); R06.02 Shortness of breath
CPT/HCPCS: 36415; 36430; 70450; 80053; 81001; 84702; 85025; 85610; 86850; 86900; 86901; 86923; 87086; 99285; P9016

== ENCOUNTER 2023-09-24 07:57 | Outpatient (AMB) | payer OTHER, SELFPAY ==
--- NOTE | 2023-09-24 08:21 | MHC.OFFVIS ---
Vital Signs 09/24/23 08:28 Height 5 ft 7 in Weight 160 lb BMI 25.1 BP 114/68 Intake Visit Reasons: RN PALLIATIVE CARE annual exam/DO NOT RS Gum Cook Required: No Information Interpreted: non-clinical & clinical Stereoptic Projection Topographer: Stereoptic Projection Topographer Present (Germaine KWOK) Accompanied by: Significant Other Allergies No Known Allergies Allergy (Verified 09/24/23 08:29) Is last menstrual period known: Yes Last menstrual period: 09/05/23 HPI Comments Details: Presenting for annual exam. Complaining of heavy menstrual cycles associated with pelvic cramping and passage of blood clots, the patient went to the emergency room on 09/14/2023 and received blood transfusion because of severe anemia. In addition the patient is complaining of pelvic pain premenstrual during her menstrual cycle and improves afterwards in addition to dyspareunia. The patient has history of endometriosis had laparoscopic fulguration of endometriosis multiple times and removal of endometrioma on the right side. No urinary symptoms, no GI symptoms no vaginal discharge, no fever or chills no nausea or vomiting. Last Pap/HPV was negative in 07/30 [facility] Medical History Constipation Endometriosis Hypoglycemia Surgical History Hx of laparoscopy Family History Father HTN (hypertension) Diabetes Mother Hypothyroid Maternal Grandfather No problems noted. Maternal Aunt Throat cancer Sister Hypothyroid Social History Household Members: Significant Other Household Members Other:: son Housing: Condominium Are you a primary home health care worker to a significant other at home: No Do you presently have visiting nurse or other home services: No Alcohol intake: never Patient Tobacco Use Status: Never used Tobacco service: No Current occupational status: employed Current occupation: Sail rep Sexual orientation: Straight/Heterosexual Gender identity: Female Female Reproductive History Menstrual Age of Menarche: 10 Date of last menstrual period: 09/05/23 Date of last pap smear: 07/23/20 Review of Systems Const All systems reviewed & are unremarkable except as noted in HPI and below Card Reports as per HPI Resp Reports as per HPI GI Reports as per HPI and Reports no additional complaints Reports as per HPI Physical Exam Vital Signs: Last Vital Signs BP 114/68 09/24/23 08:28 BMI result Body Mass Index 25.1 Const General: cooperative, healthy appearing and comfortable Chest Chest palpation & inspection: normal inspection of the chest and normal palpation of entire chest wall Breast/axilla inspection: normal inspection of the breasts and normal inspection of the axillae Breast/axilla palpation: normal palpation of the breasts, normal palpation of the axillae and no axillary lymphadenopathy Resp Effort & Inspection: normal respiratory effort Auscultation: clear to auscultation bilaterally Percussion: percussion normal Cardio Palpation: normal PMI Rate: regular rate Rhythm: regular rhythm Heart sounds: no murmurs and no rubs Peripheral pulses: Peripheral pulses 2+ throughout GI Inspection: Yes normal to inspection Palpation (GI): Soft to palpation, nontender, no guarding, not rigid and No hepatosplenomegaly present Percussion: Yes normal to percussion Auscultation: normal bowel sounds Rectal Exam - Female: deferred General: Yes bladder normal to palpation External Female Exam: No lesion Speculum Exam - Vagina: normal appearance of the vagina, normal palpation, normal vaginal discharge and not erythematous Speculum Exam - Cervix: normal appearance of the cervix and normal palpation Bimanual exam- vagina & uterus: normal bimanual exam, normal palpation, uterine size normal, bladder normal to palpation, consistency normal and normal palpation Bimanual Exam- Adnexa, other: normal adnexae, no masses and no tenderness Assessment & Plan Assessment & Plan (1) Well woman exam: Code(s): Z01.419 - Encounter for gynecological examination (general) (routine) without abnormal findings Category: Medical Plan: Cotesting done. Counseled the patient about the recommended dietary allowance of 1000 mg of Calcium & 600 IU of vitamin D. The patient was instructed to perform monthly self-breast exams and to schedule an annual exam in a year; All questions answered and the patient verbalized understanding. Instructed the patient to schedule annual exam in a year (2) Abnormal uterine bleeding (AUB): Comment: With anemia Code(s): N93.9 - Abnormal uterine and vaginal bleeding, unspecified Category: Medical Plan: Co testing done, GC and chlamydia taken CBC, TSH, prolactin, HCG, and pelvic ultrasound ordered. Discussed with the patient the different causes of abnormal bleeding including thyroid disorders, uterine and ovarian pathology, endometrial hyperplasia, carcinoma and other potential causes. Discussed with the patient the work up including CBC (to r/o anemia), TSH, prolactin, pelvic Ultrasound, endometrial biopsy to r/o endometrial pathology. All questions answered and the patient verbalized understanding. Instructed the patient to schedule an appointment for an endometrial biopsy in 2 weeks. (3) Pelvic pain: Comment: History of endometriosis Code(s): R10.2 - Pelvic and perineal pain Category: Medical Plan: Urine dip and test done in the office were both negative. GC and chlamydia taken and pelvic ultrasound ordered. Discussed with the patient the differential diagnosis of pelvic pain including but not limited to adnexal, uterine masses, pelvic infections (PID), GI the (Irritable bowel syndrome, diverticulitis, others), musculoskeletal, myofascial pain abdominal wall , adhesions, endometriosis, psychological and others causes. Will check results and treat accordingly. All questions answered, the patient verbalized understanding. Instructed the patient to schedule follow-up appointment in 2 weeks Orders: Orders Prolactin Today N93.9 - Abnormal uterine and vaginal bleeding, unspecified Complete Blood Count no Diff Today N93.9 - Abnormal uterine and vaginal bleeding, unspecified CT NG by PCR Today N93.9 - Abnormal uterine and vaginal bleeding, unspecified HCG Quantitative Today N93.9 - Abnormal uterine and vaginal bleeding, unspecified TSH reflex Free T4 Today N93.9 - Abnormal uterine and vaginal bleeding, unspecified US pelvic and transvaginal Today N93.9 - Abnormal uterine and vaginal bleeding, unspecified Coding Level of Care Code Est Pt Prev Care 18-39y(96047) Diagnoses Well woman exam Z01.419 Abnormal uterine bleeding (AUB) N93.9 Pelvic pain R10.2
[2023-09-24 08:28] VITALS: BP 114/68; BMI 25.1
== END 2023-09-24 08:57 | disposition home or self-care (01) ==
PROVIDERS: Visit Provider Obstetrics & Gynecology
DX: Z01.419 Encounter for gynecological examination (general) (routine) without abnormal findings (principal); N93.9 Abnormal uterine and vaginal bleeding, unspecified; R10.2 Pelvic and perineal pain; Z32.02 Encounter for pregnancy test, result negative
CPT/HCPCS: 99395

== ENCOUNTER 2023-09-24 07:57 | Outpatient (REF) | payer OTHER, SELFPAY ==
[2023-09-24 16:28] LABS: CT PCR NOT DETECTED (Not Detect.); NG PCR NOT DETECTED (Not Detect.)
== END 2023-09-24 07:58 | disposition home or self-care (01) ==
LOC: HO.LNP 07:57
PROVIDERS: Visit Provider Obstetrics & Gynecology
DX: Z01.419 Encounter for gynecological examination (general) (routine) without abnormal findings (principal); N93.9 Abnormal uterine and vaginal bleeding, unspecified; R10.2 Pelvic and perineal pain
CPT/HCPCS: 81025; 87491; 87591; 99395

== ENCOUNTER 2023-09-24 09:06 | Outpatient (REF) | payer OTHER, SELFPAY ==
[2023-09-24 09:29] LABS: Hematocrit 29.6 % (37.0-47.0); Hemoglobin 9.4 g/dl (12.0-16.0); Mean Corpuscular HGB Conc 31.8 g/dl (31.0-35.0); Mean Corpuscular Hemoglobin 29.2 pg (27.0-33.0); Mean Corpuscular Volume 91.9 fL (80.0-98.0); Mean Platelet Volume 9.5 fL (9.4-12.3); Platelet Count 363 X10*3/uL (160-400); Red Blood Count 3.22 X10*6/uL (4.20-5.50); Red Cell Distribution Width 14.6 % (11.0-16.0); White Blood Count 6.8 X10*3/uL (4.8-10.8)
[2023-09-24 10:33] LABS: HCG Quantitative < 2 mIU/mL; TSH reflex Free T4 1.43 uIU/mL (0.32-4.0)
[2023-09-25 08:14] LABS: Prolactin 8.2 ng/mL
== END 2023-09-24 09:07 | disposition home or self-care (01) ==
LOC: HO.LAB 09:06
PROVIDERS: Visit Provider Obstetrics & Gynecology
DX: N93.9 Abnormal uterine and vaginal bleeding, unspecified (principal)
CPT/HCPCS: 84146; 84443; 84702; 85027

== ENCOUNTER 2023-09-27 16:33 | Outpatient (REF) | payer OTHER, SELFPAY ==
--- NOTE | ~2023-09-27 | US_ITS ---
EXAMINATION: US PELVIS CLINICAL INFORMATION: Abnormal uterine bleeding. 38-year-old, LMP 09/05/2023 COMPARISON: 05/01/2023 TECHNIQUE: Ultrasound of the pelvis is performed using both transabdominal and transvaginal transducers along with Doppler. Transvaginal imaging is performed due to inadequate visualization transabdominally. FINDINGS: Uterus: The uterus is anteverted and measures 8.9 x 4.5 x 5.0 cm. The double wall endometrial thickness is 8 mm. The uterus is smooth in contour and has normal myometrial echogenicity. Subserosal left fundal fibroid measures 0.8 cm. Left uterine body intramural fibroid measures 3.1 cm right uterine body intramural fibroid measures 0.9 cm with a possible submucosal component. Adnexa: Both ovaries are visualized. There is normal color flow to the adnexa. There is no ovarian torsion. Trace right adnexal free fluid. Right ovary measures 5.9 x 4.4 x 2.9 cm. There is a complex intraovarian cyst measuring 3.2 x 2.6 x 3.4 cm. Left ovary measures 2.8 x 1.7 x 1.4 cm. US/US pelvic and transvaginal IMPRESSION: * Right intraovarian complex cyst measuring 3.4 cm may reflect a hemorrhagic cyst. Recommend short interval follow-up in 6-8 weeks to assess for resolution. * Multiple uterine fibroids. At least one demonstrates a possible submucosal component. Recommend further evaluation with sonohysterogram.
== END 2023-09-27 16:34 | disposition home or self-care (01) ==
LOC: HO.US 16:33
PROVIDERS: Visit Provider Obstetrics & Gynecology
DX: N93.9 Abnormal uterine and vaginal bleeding, unspecified (principal)
CPT/HCPCS: 76830; 76856

== ENCOUNTER 2023-10-22 07:47 | Outpatient (REF) | payer OTHER, SELFPAY | END 2023-10-22 07:48 | disposition home or self-care (01) | LOC: HO.LNP 07:47 | PROVIDERS: Visit Provider Obstetrics & Gynecology | DX: N93.9 Abnormal uterine and vaginal bleeding, unspecified (principal); N83.299 Other ovarian cyst, unspecified side | CPT/HCPCS: 58100; 88305; 99212 ==

== ENCOUNTER 2023-10-22 07:47 | Outpatient (AMB) | payer OTHER, SELFPAY ==
[2023-10-22 07:51] VITALS: BP 124/82; BMI 26.4
--- NOTE | 2023-10-22 07:51 | MHC.OFFVIS ---
Vital Signs 10/22/23 07:51 Height 5 ft 5 in Weight 158 lb 11.725 oz BMI 26.4 BP 124/82 Intake Visit Reasons: EMB/ ultra sound results Instructor Flying Required: No Information Interpreted: non-clinical & clinical Accompanied by: Self / Same As Patient Allergies No Known Allergies Allergy (Verified 10/22/23 08:00) Is last menstrual period known: Yes Last menstrual period: 10/04/23 HPI Comments Details: Presenting to discuss the results of the pelvic ultrasound and for EMB. Pelvic ultrasound done in 11/02 showed the following: Uterus: The uterus is anteverted and measures 8.9 x 4.5 x 5.0 cm. The double wall endometrial thickness is 8 mm. The uterus is smooth in contour and has normal myometrial echogenicity. Subserosal left fundal fibroid measures 0.8 cm. Left uterine body intramural fibroid measures 3.1 cm right uterine body intramural fibroid measures 0.9 cm with a possible submucosal component. Adnexa: Both ovaries are visualized. There is normal color flow to the adnexa. There is no ovarian torsion. Trace right adnexal free fluid. Right ovary measures 5.9 x 4.4 x 2.9 cm. There is a complex intraovarian cyst measuring 3.2 x 2.6 x 3.4 cm. Left ovary measures 2.8 x 1.7 x 1.4 cm. [facility] Medical History Constipation Endometriosis Hypoglycemia Surgical History Hx of laparoscopy Family History Father HTN (hypertension) Diabetes Mother Hypothyroid Maternal Grandfather No problems noted. Maternal Aunt Throat cancer Sister Hypothyroid Social History Household Members: Significant Other Household Members Other:: son Housing: Condominium Are you a primary health care manager to a significant other at home: No Do you presently have visiting nurse or other home services: No Alcohol intake: never Patient Tobacco Use Status: Never used Tobacco service: No Current occupational status: employed Current occupation: Sail rep Sexual orientation: Straight/Heterosexual Gender identity: Female Female Reproductive History Menstrual Age of Menarche: 10 Date of last menstrual period: 10/04/23 Review of Systems Const All systems reviewed & are unremarkable except as noted in HPI and below Reports as per HPI and Reports no additional complaints GI Reports no additional complaints Reports no additional complaints Physical Exam Vital Signs: Last Vital Signs BP 124/82 10/22/23 07:51 BMI result Body Mass Index 26.4 Office Procedures Endometrial Biopsy Details: The patient was counseled regarding the indication and benefits of endometrial sampling to rule out endometrial pathology including not limited to endometrial hyperplasia or endometrial cancer and others; The alternatives (Either do nothing vs. hysteroscopy D&C) & the risks were discussed with the patient including but not limited: pain, uterine perforation, bleeding, infection, possible injury to bladder, bowel, ureter, possible need for blood transfusion with all its possible risks. The patient verbalized understanding all questions answered and signed consent. Urine test done in the office was negative The patient was placed into the dorsal lithotomy position; a speculum was inserted in the vagina. Using aseptic technique for the procedure, the cervix was cleansed with Betadine. The anterior lip of the cervix was grasped with a single tooth tenaculum. The uterus was sounded to 7 cm with a 4 mm Pipelle was used. Tissues samples were obtained and placed in formalin, in a patient labeled container and sent to the pathology department. At the end of the procedure, there was minimal bleeding noted The patient tolerated the procedure well and was discharged in good condition with the following instructions: Nothing in the vagina until the bleeding stops. No sex until the bleeding stops, to call if any of the following occurs: fever (>100.4), flu-like symptoms, abdominal pain, heavy bleeding, four smelling vaginal discharge. The patient was instructed to schedule a Follow up appointment in 2 weeks to discuss pathology results of the biopsy and treatment options. This note was generated with a voice recognition program. Some errors may have been overlooked during the review of this note. Sometimes these errors may affect the content or meaning of a given sentence. [id number] Biopsy Assessment & Plan Assessment & Plan (1) Abnormal uterine bleeding (AUB): Comment: With anemia Code(s): N93.9 - Abnormal uterine and vaginal bleeding, unspecified Category: Medical Plan: EMB done, see procedure note (2) Complex ovarian cyst: Code(s): N83.299 - Other ovarian cyst, unspecified side Category: Medical Plan: Discussed with the patient the complex ovarian cyst by ultrasound. Discussed with the patient the Ultrasound findings, the main limitation of transvaginal ultrasonography alone as a diagnostic tool to distinguish benign from malignant masses relates to its lack of specificity and low positive predictive value for cancer. Discussed with the patient options of treatment including laparoscopy ovarian cystectomy/oophorectomy vs. expectant management with repeat US in repeating pelvic US in 8 weeks from previous US. If the ovarian complex cyst is persistent larger and / or more complex looking, will refer to gynecologic Oncology. All pros, cons, risks and benefits of each approach were discussed with the patient including but not limited to a delay in the diagnosis and treatment of ovarian cancer affecting the prognosis; The patient decided to go ahead with expectant management. Instructions given the patient to schedule a 3 months follow-up ultrasound appointment. All questions were answered & the patient verbalized understanding and agreed with the plan. Orders: Orders US pelvic and transvaginal 2 Months N83.299 - Other ovarian cyst, unspecified side AMB Endometrial Biopsy Today N93.9 - Abnormal uterine and vaginal bleeding, unspecified Coding Level of Care Code Est Pt Level 3 (93489) Procedure Only Diagnoses Abnormal uterine bleeding (AUB) N93.9 Complex ovarian cyst N83.299 CPT Codes Endometrial Biopsy - CPT: 01290-Chbchexijby Biopsy ([id number])
== END 2023-10-22 08:31 | disposition home or self-care (01) ==
PROVIDERS: Visit Provider Obstetrics & Gynecology
DX: N93.9 Abnormal uterine and vaginal bleeding, unspecified (principal); N83.291 Other ovarian cyst, right side
CPT/HCPCS: 58100; 99213

== ENCOUNTER 2023-11-30 12:30 | Outpatient (RCR) | payer OTHER, SELFPAY ==
[2023-11-09 07:32] VITALS: BP 128/72; PULSE 76; RESP 18; TEMP 36.3
[2023-11-09] MEDS: Iron Sucrose Complex 200 MG in 0.9 % Sodium Chloride 100 ML 440 MG IV (07:34)
[2023-11-16 07:32] VITALS: BP 109/65; PULSE 71; RESP 16; TEMP 36.6; O2SAT 99
[2023-11-16] MEDS: Iron Sucrose Complex 200 MG in 0.9 % Sodium Chloride 100 ML 440 MG IV (07:37)
[2023-11-23 07:36] VITALS: BP 114/70; PULSE 72; RESP 18; TEMP 36.6
[2023-11-23] MEDS: Iron Sucrose Complex 200 MG in 0.9 % Sodium Chloride 100 ML 440 MG IV (07:49)
[2023-11-30 12:18] VITALS: BP 117/73; PULSE 66; RESP 14; TEMP 36.9; O2SAT 99
[2023-11-30] MEDS: Iron Sucrose Complex 200 MG in 0.9 % Sodium Chloride 100 ML 440 MG IV (12:42)
== END 2023-11-30 13:01 | disposition home or self-care (01) ==
LOC: HO.INF 12:30
PROVIDERS: Visit Provider Internal Medicine
DX: D64.9 Anemia, unspecified (principal)
CPT/HCPCS: 96365; 96374; J1756

== ENCOUNTER 2023-12-06 07:54 | Outpatient (AMB) | payer OTHER, SELFPAY ==
--- NOTE | 2023-12-06 07:55 | MHC.OFFVIS ---
Vital Signs 12/06/23 07:56 Height 5 ft 5 in Weight 158 lb BMI 26.3 Intake Visit Reasons: EMB results Assignment Desk Editor Required: No Information Interpreted: non-clinical & clinical Accompanied by: Self / Same As Patient Allergies No Known Allergies Allergy (Verified 12/06/23 07:57) HPI Comments Details: The patient is presenting for follow-up to discuss the results of her abnormal uterine bleeding workup and options of treatment. The following workup was done.: H&H= 9.4/29.6 TSH, prolactin, hCG, GC and chlamydia were negative. Endometrial biopsy pathology showed the following: Mid-to-late secretory endometrium; negative for atypia, hyperplasia or malignancy Co testing was done in 07/30 was negative. Pelvic ultrasound showed the following: Uterus: The uterus is anteverted and measures 8.9 x 4.5 x 5.0 cm. The double wall endometrial thickness is 8 mm. The uterus is smooth in contour and has normal myometrial echogenicity. Subserosal left fundal fibroid measures 0.8 cm. Left uterine body intramural fibroid measures 3.1 cm right uterine body intramural fibroid measures 0.9 cm with a possible submucosal component. Adnexa: Both ovaries are visualized. There is normal color flow to the adnexa. There is no ovarian torsion. Trace right adnexal free fluid. Right ovary measures 5.9 x 4.4 x 2.9 cm. There is a complex intraovarian cyst measuring 3.2 x 2.6 x 3.4 cm. Left ovary measures 2.8 x 1.7 x 1.4 cm. The patient came of control pills in February of 2023 and has been trying to attempt since then [facility] Medical History Constipation Endometriosis Hypoglycemia Surgical History Hx of laparoscopy Family History Father HTN (hypertension) Diabetes Mother Hypothyroid Maternal Grandfather No problems noted. Maternal Aunt Throat cancer Sister Hypothyroid Social History Household Members: Significant Other Household Members Other:: son Housing: Condominium Are you a primary critical care physician to a significant other at home: No Do you presently have visiting nurse or other home services: No Alcohol intake: never Patient Tobacco Use Status: Never used Tobacco service: No Current occupational status: employed Current occupation: Sail rep Sexual orientation: Straight/Heterosexual Gender identity: Female Female Reproductive History Menstrual Age of Menarche: 10 Review of Systems Const All systems reviewed & are unremarkable except as noted in HPI and below Reports as per HPI and Reports no additional complaints GI Reports no additional complaints Reports no additional complaints Physical Exam Vital Signs: BMI result Body Mass Index 26.3 Assessment & Plan Assessment & Plan (1) Complex ovarian cyst: Code(s): N83.299 - Other ovarian cyst, unspecified side Category: Medical Plan: Repeat ultrasound scheduled on 12/19 and a follow-up ultrasound appointment afterwards (2) Abnormal uterine bleeding (AUB): Comment: With anemia Code(s): N93.9 - Abnormal uterine and vaginal bleeding, unspecified Category: Medical Plan: Discussed with the patient the results of the work up done and options of treatment including Lysteda, BCP's, Mirena IUD (the patient is interested in future fertility). All pros, cons, risks and benefits if each option was discussed with the patient and the patient decided to go ahead with Lysteda , so a more detailed discussion re: Lysteda including mechanism of action, benefits, risks including but not limited to thrombosis and strokes, Instructions were given on how to use, 2 tablets p.o. 3 times a day day 1 up to 3-5 days of menses and to schedule a 3 months follow-up appointment. The patient verbalized understanding and agreed with the plan. (3) Myoma: Code(s): D21.9 - Benign neoplasm of connective and other soft tissue, unspecified Category: Medical Plan: Ultrasound scheduled in 12 19 and a follow-up appointment afterwards Medications: New tranexamic acid Start 1st day of menses and take it up to 3-5 days of menses. 1,300 mg (2 x 650 mg) PO TID 5 days 30 tabs 2RF Coding Level of Care Code Est Pt Level 3 (22400) Diagnoses Complex ovarian cyst N83.299 Abnormal uterine bleeding (AUB) N93.9 Myoma D21.9
[2023-12-06 07:56] VITALS: BMI 26.3
== END 2023-12-06 08:40 | disposition home or self-care (01) ==
PROVIDERS: Visit Provider Obstetrics & Gynecology
DX: N83.299 Other ovarian cyst, unspecified side (principal); N93.9 Abnormal uterine and vaginal bleeding, unspecified; D21.9 Benign neoplasm of connective and other soft tissue, unspecified
CPT/HCPCS: 99213

== ENCOUNTER → 2023-12-06 07:54 | Outpatient (BNVA) | payer OTHER, SELFPAY | PROVIDERS: Visit Provider Obstetrics & Gynecology | DX: N83.299 Other ovarian cyst, unspecified side (principal); N93.9 Abnormal uterine and vaginal bleeding, unspecified; D21.9 Benign neoplasm of connective and other soft tissue, unspecified | CPT/HCPCS: 99212 ==

== ENCOUNTER 2023-12-21 12:19 | Outpatient (REF) | payer OTHER, SELFPAY ==
--- NOTE | ~2023-12-21 | US_ITS ---
EXAMINATION: US PELVIS CLINICAL INFORMATION: Cyst follow-up COMPARISON: Pelvic ultrasound 09/27/2023: Right intraovarian complex cyst measuring 3.4 cm may reflect a hemorrhagic cyst. Recommend short interval follow-up in 6-8 weeks to assess for resolution. TECHNIQUE: Ultrasound of the pelvis is performed using both transabdominal and transvaginal transducers along with Doppler. Transvaginal imaging is performed due to inadequate visualization transabdominally. FINDINGS: Uterus: The uterus is anteverted and measures 8.8 x 4.2 x 6.8 cm for a volume of 131 cc. 3 uterine fibroids are again seen ranging in size from 0.7 cm to 2.5 cm. The double wall endometrial thickness is 0.4 mm. The uterus is smooth in contour and has normal myometrial echogenicity. No visible fibroid. Adnexa: Both ovaries are visualized. There is normal color flow to the adnexa. There is no ovarian torsion. There is a small amount of free pelvic fluid. Right ovary measures 4.6 x 1.5 x 2.5 cm for a volume of 9.3 cc. Normal follicular cysts are seen. The previously seen complex 3.4 cm right ovarian cyst is no longer present. Left ovary measures 3.6 x 1.8 x 1.7 cm for a volume of 5.8 cc. Normal follicular cysts are seen. US/US pelvic and transvaginal IMPRESSION: 1. The previously seen complex right ovarian cyst is no longer present. 2. Uterine fibroids are again seen. Electronically signed by: Rasheed Barboza MD 02/21/2024 11:50 AM EST
== END 2023-12-21 12:20 | disposition home or self-care (01) ==
LOC: HO.US 12:19
PROVIDERS: Visit Provider Obstetrics & Gynecology
DX: N83.299 Other ovarian cyst, unspecified side (principal)
CPT/HCPCS: 76830; 76856

== ENCOUNTER 2024-02-05 11:24 | Outpatient (AMB) | payer OTHER, SELFPAY ==
--- NOTE | 2024-02-05 11:24 | MHC.OFFVIS ---
Intake Visit Reasons: infertility issues Director It Required: No Information Interpreted: non-clinical & clinical Allergies No Known Allergies Allergy (Verified 12/06/23 07:57) HPI Comments Details: The patient is presenting c/o inability to conceive over the last year in spite of frequent adequate intercourse. Her periods are regular and non-painful, no other complaints. The patient gives history of endometriosis status post laparoscopic fulguration x3 at age of [age] in 26 of endometriosis and ovarian cystectomy for endometrioma The patient has been checking her ovulation using urine LH ovulation surge of last six-month and has been able to document ovulation, her partner has contacted her primary care physician who ordered a semen analysis which is scheduled in 03/31/2024 [facility] Medical History Constipation Endometriosis Hypoglycemia Surgical History Hx of laparoscopy Family History Father HTN (hypertension) Diabetes Mother Hypothyroid Maternal Grandfather No problems noted. Maternal Aunt Throat cancer Sister Hypothyroid Social History Household Members: Significant Other Household Members Other:: son Housing: Condominium Are you a primary patient care specialist to a significant other at home: No Do you presently have visiting nurse or other home services: No Alcohol intake: never Patient Tobacco Use Status: Never used Tobacco service: No Current occupational status: employed Current occupation: Sail rep Sexual orientation: Straight/Heterosexual Gender identity: Female Female Reproductive History Menstrual Age of Menarche: 10 Review of Systems Const All systems reviewed & are unremarkable except as noted in HPI and below Reports as per HPI and Reports no additional complaints GI Reports no additional complaints Reports no additional complaints Telehealth Telehealth Telehealth Platform: Telephone Location of provider rendering services: practice address Location of patient: address on file Patient Identification confirmed using: Name, : Yes Telehealth method: video Patient verbally consented to treatment: Yes Patient verbally consented to billing insurance company: Yes Patient informed of any privacy concerns related to visit: Yes Assessment & Plan Assessment & Plan (1) Infertility counseling: Code(s): Z31.69 - Encounter for other general counseling and advice on procreation Category: Medical Plan: Discussed with the patient the cause of infertility including male and female possible causes. In the workup including documentation of ovulation which has been already documented last six-month, semen analysis and a hysterosalpingogram. Will schedule day 8 hysterosalpingogram. The patient expectant her menstrual cycle to be on 02/07/2024, will schedule HH see on day 8. Instructions given the patient to schedule an appointment order placed and a follow-up appointment afterwards. All questions answered, the patient verbalized understanding. I spent a total of 20 minutes reviewing the chart, talking to the patient via video and documenting in the medical record. Orders: Orders [place] hysterosalpingography 02/14/24 Z31.69 - Encounter for other general counseling and advice on procreation Coding Level of Care Code Tele Est Pt Level 3 (20788) Diagnoses Infertility counseling Z31.69
== END 2024-02-05 12:03 | disposition home or self-care (01) ==
LOC: HO.HWS 11:24
PROVIDERS: Visit Provider Obstetrics & Gynecology
DX: Z31.69 Encounter for other general counseling and advice on procreation (principal)
CPT/HCPCS: 99213

== ENCOUNTER → 2024-02-05 11:24 | Outpatient (BNVA) | payer OTHER, SELFPAY | PROVIDERS: Visit Provider Obstetrics & Gynecology ==

== ENCOUNTER 2024-02-13 12:52 | Outpatient (REF) | payer OTHER, SELFPAY ==
--- NOTE | ~2024-02-13 | FL_ITS ---
EXAMINATION: FL HYSTEROSALPINGOGRAM CLINICAL INFORMATION: Infertility COMPARISON: None TECHNIQUE: Intrauterine contrast injection was performed by GROUND OPERATIONS SUPERVISOR Dr. Julio under fluoroscopy with the radiology physician assistant cook present. FINDINGS: On the fluoroscopy images, there is a balloon inflated catheter within the uterine cavity. No other uterine filling defect. There is intraperitoneal spillage contrast bilaterally, confirming patency of both the right and left fallopian tubes. Venous intravasation is noted. FLUOROSCOPY TIME: 1 minute 46 seconds DOSE AREA PRODUCT: 696.1 uGy-m2 (microgray-meter squared) FL/FL hysterosalpingography IMPRESSION: 1. Normal uterine cavity. 2. Patent left and right fallopian tubes. This procedure was performed by Rudy Padilla PA-C, and supervised by Dr. Salazar Electronically signed by: Chandra Salazar MD 02/19/2024 02:40 PM [facility]
== END 2024-02-13 12:53 | disposition home or self-care (01) ==
LOC: HO.XRAY 12:52
PROVIDERS: Visit Provider Obstetrics & Gynecology
DX: Z31.69 Encounter for other general counseling and advice on procreation (principal)
CPT/HCPCS: 58340; 74740; 81025

== ENCOUNTER → 2024-02-13 12:54 | Outpatient (BNV) | payer OTHER, SELFPAY | PROVIDERS: Visit Provider Physician Assistant Surgical | DX: N97.9 Female infertility, unspecified (principal) | CPT/HCPCS: 74740 ==

== ENCOUNTER 2024-02-13 13:23 | Outpatient (AMB) | payer OTHER, SELFPAY ==
--- NOTE | 2024-02-13 13:29 | MHC.OFFVIS ---
Intake Visit Reasons: Hysterosalpingogram - test Allergies No Known Allergies Allergy (Verified 12/06/23 07:57) HPI Comments Details: Presenting for HSG [facility] Medical History Constipation Endometriosis Hypoglycemia Surgical History Hx of laparoscopy Family History Father HTN (hypertension) Diabetes Mother Hypothyroid Maternal Grandfather No problems noted. Maternal Aunt Throat cancer Sister Hypothyroid Social History Household Members: Significant Other Household Members Other:: son Housing: Condominium Are you a primary grounds caretaker to a significant other at home: No Do you presently have visiting nurse or other home services: No Alcohol intake: never Patient Tobacco Use Status: Never used Tobacco service: No Current occupational status: employed Current occupation: [employer] Sexual orientation: Straight/Heterosexual Gender identity: Female Female Reproductive History Menstrual Age of Menarche: 10 Office Procedures Hysterosalpingography Hysterosalpingography Details: Urine test done in the office was negative. Time-out for HSG procedure was done. Speculum was placed in patient's vagina, vagina and cervix were prepped with betadine. A tenaculum was applied to the cervix. A primed 5 Yi HSG catheter was introduced into the cervix and balloon inflated. Speculum was removed. Contrast was injected under flouroscopy revealing a normal cavity and left fill and spill. Right side fallopian tube was not clearly evident. Will wait for the results of the final report per radiology. All instruments were removed from vagina and aftercare instructions were given. Instructions given to patient to call in case of fever above 100.4 severe abdominal/ pain, nausea and/or vomiting, heavy vaginal bleeding. Since the right tube a questionably obstructed will treat with doxycycline 100 mg p.o. b.i.d. for 5 days This note was generated with a voice recognition program. Some errors may have been overlooked during the review of this note. Sometimes these errors may affect the content or meaning of a given sentence. HSG CPT code: 94322-[id number] Results AMB Test Urine AMB Test Urine Negative Last Edit by SUNDAR Peraza on 02/13/24 13:30 Results Reviewed Results Reviewed: Laboratory Last Values Tst Clinic Negative 02/13/24 13:29 Assessment & Plan Assessment & Plan (1) Infertility, female: Code(s): N97.9 - Female infertility, unspecified Category: Medical Plan: HSG done, see procedure the Orders: Orders AMB HCG Urine Test Today N93.9 - Abnormal uterine and vaginal bleeding, unspecified Medications: New doxycycline hyclate 100 mg PO BID 5 days 10 caps 0RF Coding Level of Care Code Procedure Only Diagnoses Infertility, female N97.9 CPT Codes Hysterosalpingography - HSG CPT code: 70066-[id number] ([id number])
== END 2024-02-13 13:28 | disposition home or self-care (01) ==
LOC: HO.HWS 13:23
PROVIDERS: Visit Provider Obstetrics & Gynecology
DX: N97.9 Female infertility, unspecified (principal); Z32.02 Encounter for pregnancy test, result negative
CPT/HCPCS: 58340

== ENCOUNTER 2024-02-13 14:01 | Outpatient (REF) | payer OTHER, SELFPAY | END 2024-02-13 14:02 | disposition home or self-care (01) | LOC: HO.LAB 14:01 | PROVIDERS: Visit Provider Obstetrics & Gynecology | DX: Z13.89 Encounter for screening for other disorder (principal) ==

== ENCOUNTER 2024-02-27 11:34 | Outpatient (AMB) | payer OTHER, SELFPAY ==
[2024-02-27 11:40] VITALS: BMI 26.3
--- NOTE | 2024-02-27 11:40 | A.OFFVIS_ITS ---
Vital Signs 02/27/24 11:40 Height 5 ft 5 in Weight 158 lb BMI 26.3 Intake Visit Reasons: u/s results Allergies No Known Allergies Allergy (Verified 12/06/23 07:57) HPI Comments Details: Presenting for follow-up ultrasound which showed the following: Uterus: The uterus is anteverted and measures 8.8 x 4.2 x 6.8 cm for a volume of 131 cc. 3 uterine fibroids are again seen ranging in size from 0.7 cm to 2.5 cm. The double wall endometrial thickness is 0.4 mm. The uterus is smooth in contour and has normal myometrial echogenicity. No visible fibroid. Adnexa: Both ovaries are visualized. There is normal color flow to the adnexa. There is no ovarian torsion. There is a small amount of free pelvic fluid. Right ovary measures 4.6 x 1.5 x 2.5 cm for a volume of 9.3 cc. Normal follicular cysts are seen. The previously seen complex 3.4 cm right ovarian cyst is no longer present. Left ovary measures 3.6 x 1.8 x 1.7 cm for a volume of 5.8 cc. Normal follicular cysts are seen 02/19/2024 hysterosalpingogram showed the following: IMPRESSION: 1. Normal uterine cavity. 2. Patent left and right fallopian tubes PFSH Medical History Constipation Endometriosis Hypoglycemia Surgical History Hx of laparoscopy Family History Father HTN (hypertension) Diabetes Mother Hypothyroid Maternal Grandfather No problems noted. 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 Sexual orientation: Straight/Heterosexual Gender identity: Female Female Reproductive History Menstrual Age of Menarche: 10 Review of Systems Const All systems reviewed & are unremarkable except as noted in HPI and below Reports as per HPI and Reports no additional complaints GI Reports no additional complaints Reports no additional complaints Physical Exam Vital Signs: BMI result Body Mass Index 26.3 Assessment & Plan Assessment & Plan (1) Complex ovarian cyst: Code(s): N83.299 - Other ovarian cyst, unspecified side Category: Medical Plan: Discussed with the patient ultrasound findings showing the previously identified complex cyst has resolved. The patient was instructed to call if symptoms recur. All questions were answered the patient verbalized understanding. (2) Infertility, female: Code(s): N97.9 - Female infertility, unspecified Category: Medical Plan: Discussed with the patient the results of hysterosalpingogram, bilateral patent fallopian tube with a normal uterine cavity, seemen analysis scheduled in few days, LH ovulation showed positive operation will refer to Reproductive Endocrinology/infertility for further management. All questions answered, the patient verbalized understanding. Instructed the patient to call our office back in case a referral appointment is not scheduled, missed or canceled so that we will assist on rescheduling another appointment, the patient verbalized u nderstanding agreed with the plan. (3) Uterine myoma: Code(s): D25.9 - Leiomyoma of uterus, unspecified Category: Medical Plan: Discussed with the patient the findings on pelvic ultrasound & the risk of myosarcoma; discussed with the patient the options of treatment including expectant management versus myomectomy; the patient is refer to [facility] for further management. All questions answered, the patient verbalized understanding Orders: Referrals Infertility Reproductive Referral (female) N97.9 - Female infertility, unspecified Coding Level of Care Code Est Pt Level 3 (80422) Diagnoses Complex ovarian cyst N83.299 Infertility, female N97.9 Uterine myoma D25.9
== END 2024-02-27 12:01 | disposition home or self-care (01) ==
LOC: HO.HWS 11:34
PROVIDERS: Visit Provider Obstetrics & Gynecology
DX: N83.299 Other ovarian cyst, unspecified side (principal); N97.9 Female infertility, unspecified; D25.9 Leiomyoma of uterus, unspecified
CPT/HCPCS: 99213

== ENCOUNTER → 2024-02-27 11:34 | Outpatient (BNVA) | payer OTHER, SELFPAY | PROVIDERS: Visit Provider Obstetrics & Gynecology | DX: N83.299 Other ovarian cyst, unspecified side (principal); N97.9 Female infertility, unspecified; D25.9 Leiomyoma of uterus, unspecified | CPT/HCPCS: 99212 ==

== ENCOUNTER 2024-03-08 15:01 | Emergency (ER) | payer OTHER, SELFPAY ==
--- NOTE | ~2024-03-08 | US_ITS ---
CLINICAL HISTORY: heavy vaginal bleeding clots US female pelvis LMP: Unknown Technique: Ultrasound examination of the pelvis was performed with transabdominal and transvaginal technique for better visualization of the ovaries. Images include: color Doppler and spectral Doppler waveforms. Comparison: None Findings: Anteverted uterus measuring 8.1 x 4.1 x 5.3cm with fibroids measuring 2.4 x 2.0 x 2.5 cm and 1.1 x 1.1 x 1.1 cm. Normal endometrial thickness of 0.5cm. The right ovary is normal in size, measuring 3.8 x 3.0 x 2.5cm, volume of 14.9mL. There is normal echogenicity and arterial/venous color Doppler and venous spectral Doppler. No lesions. The left ovary is normal in size, measuring 3.0 x 2.2 x 2.2cm, volume of 7.6mL. There is normal echogenicity and arterial/venous color Doppler. No lesions. There is a trace amount of fluid in the cul-de-sac, which is likely physiologic. Impression: No acute findings. Fibroid uterus. This document has been electronically signed by: Randi Ferris MD on 03/08/2024 16:33:13
[2024-03-08 15:16] VITALS: BP 153/93; PULSE 84; RESP 18; TEMP 36.9; O2SAT 99; BMI 27.4
--- NOTE | 2024-03-08 15:19 | ED_ITS ---
HPI - Female Genitourinary General Chief complaint: Vaginal Bleeding Stated complaint: vaginal bleeding Time Seen by Provider: 03/08/24 21:06 Source: patient Mode of arrival: ambulatory Limitations: no limitations History of Present Illness ED Provider: Dr. Azalia Jorge HPI Narrative: Patient comes to the emergency room complaining of heavy vaginal bleeding. Patient is on her 6th day of her menstrual period. Patient states that she usually has heavy menses due to fibroids in her uterus. Patient states that back in September of this year, patient had very heavy menstrual period which required a blood transfusion. Patient states that today she started feeling a bit lightheaded, and decided to come to get checked out. Patient denies any near-syncope or syncopal episodes. Patient states that she is not on control, patient is trying to conceive. Related Data Home Medications ?Medication ?Instructions ?Recorded ?Confirmed albuterol sulfate 90 mcg/actuation 2 puff inhalation Q4H PRN asthma 04/09/23 10/17/23 aerosol inhaler Previous Rx's ?Medication ?Instructions ?Recorded tranexamic acid 650 mg tablet 1,300 mg (2 x 650 mg) PO TID 5 12/06/23 days #30 tabs doxycycline hyclate 100 mg capsule 100 mg PO BID 5 days #10 caps 02/13/24 Allergies Allergy/AdvReac Type Severity Reaction Status Date / Time No Known Allergies Allergy Verified 03/08/24 15:20 Review of Systems 2 Review of Systems: Constitutional : No Weight loss, No Fever, No Chills, No Night Sweats, No Fatigue, No Malaise ENT/Mouth : No Hearing loss, No Ear Pain, No Nasal Congestion, No Sinus Pain, No Hoarseness, No sore throat, No Rhinorrhea, No Swallowing Difficulty Eyes: No Eye Pain, No Swelling, No Redness, No Foreign Body, No Discharge, No Vision Changes Cardiovascular : No Chest Pain, No SOB, No Dyspnea on Exertion, No Orthopnea, No Edema, No Palpitations Respiratory : No Cough, No Sputum, No Wheezing, No Smoke Exposure, No Dyspnea Gastrointestinal : No Nausea, No Vomiting, No Diarrhea, No Constipation, No abdominal Pain, No Hematochezia, No Melena Genitourinary : Heavy menstrual period, No Dysuria, No Urinary Frequency, No Hematuria, No Urinary Incontinence, No Urgency, No Flank Pain, No Urinary Flow Changes, No Hesitancy Musculoskeletal : No joint pain, No Myalgias, No Joint Swelling Skin : No Skin Lesions, No rash Neuro : No Weakness, No Numbness, No Paresthesias, No Loss of Consciousness, No Dizziness, No Headache Psych : No Anxiety/Panic, No Depression, No SI/HI/AH/VH, No Social Issues, Heme/Lymph: No Bruising, No Bleeding,No Lymphadenopathy Endocrine : No Polyuria, No Polydipsia, No Temperature Intolerance [facility] Past Medical History Medical History Constipation Endometriosis Hypoglycemia Surgical History Hx of laparoscopy Family History Family History Father HTN (hypertension) Diabetes Mother Hypothyroid Maternal Grandfather No problems noted. 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 Oriented X3. No acute distress. Eyes: Pupils equal, round and reactive to light. ENT: Pharynx normal. Neck: Normal inspection. Neck supple. No lymph nodes noted. No crepitus CVS: Normal heart rate and rhythm. Pulses normal. Normal S1 and S2 Respiratory: No respiratory distress. Breath sounds normal. No Wheezing. No rales Abdomen: Soft and nontender. No rigidity. No distention. : Patient has moderate vaginal bleeding, mild active bleeding through the cervix. Skin: Skin warm and dry. Normal skin color. Normal skin turgor. Extremities: No lower extremity edema. No Lacerations. No Rash Neuro: Oriented X 3. No motor deficit. No sensory deficit. Moving all extremities. No slurred speech. CN 2 through 12 grossly intact Psych: calm, cooperative, normal affect Course Course Course Narrative: This is a Rapid Medical Examination (RME) performed by Santiago Calhoun PA-C in triage. Full HPI, ROS, assessment and treatment plan per primary provider in the Main ED. 38 yo female hx of uterine fibroids, endometriosis, hypoglycemia, and constipation here for eval of 5 days of heavy vaginal bleeding. she began passing clots yesterday. has been using a menstrual cup and pads. changing pad and cup every hour. assoc abd cramping. admits to hx of blood transfusion in 09/2023 secondary to heavy menstrual bleeding. Plan: labs, US Medical Decision Making Medical Decision Making [facility] Narrative: My interpretation of labs: Patient's hemoglobin hematocrit stable, 12.6 and 37.2 respectively. No chemistry abnormalities. HCG negative Pelvic ultrasound shows fibroids in the uterus which patient is aware. -patient requesting to avoid any hormonal treatment since she is trying to conceive. To patient's knowledge, she does not have any history of coagulopathy, migraine headaches or thromboembolic events. I Discussed with the patient that 1 option is to give tranexamic acid for maximum 5 days. Patient is agreeable with plan, patient received the 1st dose of 1300 mg p.o. TXA Patient will follow-up with his OBGYN on Sunday, Dr. Julio Differential Diagnosis Differential Diagnoses: The differential diagnosis associated with the presentation includes Lab Data [facility] Lab Attestation statement: I reviewed the patient's lab results. 03/08/24 15:35 03/08/24 15:35 Labs: Lab Results 03/08/24 03/08/24 Range/Units 15:35 15:36 WBC 5.4 (4.8-10.8) X10*3/uL RBC 3.95 L D (4.20-5.50) X10*6/uL Hgb 12.6 D (12.0-16.0) g/dl Hct 37.2 D (37.0-47.0) % MCV 94.2 (80.0-98.0) fL MCH 31.9 (27.0-33.0) pg MCHC 33.9 (31.0-35.0) g/dl RDW 13.2 (11.0-16.0) % Plt Count 263 D (160-400) X10*3/uL MPV 10.1 (9.4-12.3) fL Immature Gran % (Auto) 0.2 (0.0-0.4) % Neut % (Auto) 56.7 (45-73) % Lymph % (Auto) 25.7 (20-40) % Buchanan % (Auto) 8.5 (2-11) % Eos % (Auto) 8.5 H (0-4) % Baso % (Auto) 0.4 (0-2) % Lymph # (Auto) 1.4 (1.2-4.9) X10*3/uL Buchanan # (Auto) 0.5 (0.1-1.2) X10*3/uL Eos # (Auto) 0.5 H (0.0-0.4) X10*3/uL Baso # (Auto) 0.0 (0.0-0.2) X10*3/uL Abs Immat Gran (auto) 0.01 (0.00-0.03) X10*3/uL Absolute Neuts (auto) 3.1 (2.0-8.3) x10*3/uL Absolute Nucleated RBC 0.000 (0.0-0.012) X10*3/uL Nucleated RBC % (auto) 0.0 (0.0-0.2) /100WBC Sodium 136 (135-145) mmol/L Potassium 3.5 (3.3-5.1) mmol/L Chloride 107 (96-108) mmol/L Carbon Dioxide 25 (22-29) mmol/L Anion Gap 8 L (12-20) BUN 7 L (9-16) mg/dL Creatinine 0.76 (0.5-1.4) mg/dL Estim Creat Clear Calc 103.4 Estimated GFR > 60 Random Glucose 123 H (60-115) mg/dL Calcium 9.8 (8.4-10.2) mg/dL Total Bilirubin 0.3 (0.0-1.0) mg/dL AST 23 (5-31) U/L ALT 17 (0-31) U/L Alkaline Phosphatase 70 (39-117) U/L Total Protein 7.0 (6.5-8.0) g/dL Albumin 3.9 (3.5-5.0) g/dL Beta HCG, Quant < 2 mIU/mL Blood Type O Positive Antibody Screen NEGATIVE Independent Interpretation I performed an independent interpretation of an: Ultrasound Radiology Impression Discussion of test interpretation with radiology: I have reviewed the radiologist's reading. Radiologist Impression: Anteverted uterus measuring 8.1 x 4.1 x 5.3cm with fibroids measuring 2.4 x 2.0 x 2.5 cm and 1.1 x 1.1 x 1.1 cm. Normal endometrial thickness of 0.5cm. The right ovary is normal in size, measuring 3.8 x 3.0 x 2.5cm, volume of 14.9mL. There is normal echogenicity and arterial/venous color Doppler and venous spectral Doppler. No lesions. The left ovary is normal in size, measuring 3.0 x 2.2 x 2.2cm, volume of 7.6mL. There is normal echogenicity and arterial/venous color Doppler. No lesions. There is a trace amount of fluid in the cul-de-sac, which is likely physiologic. Impression: No acute findings. Fibroid uterus. Discharge Plan Discharge Clinical Impression: Menorrhagia Patient Disposition: Home, Self-Care Instructions: Menorrhagia (ED) Additional Instructions: Please follow-up with your primary care physician tomorrow. If you have any worsening or new symptoms, please return to the emergency room or call 911 Prescriptions: No Action albuterol sulfate 90 mcg/actuation HFA aerosol inhaler 2 puff inhalation Q4H PRN (Reason: asthma) tranexamic acid 650 mg tablet 1,300 mg PO TID 5 Days Qty: 30 2RF Rx Instructions: Start 1st day of menses and take it up to 3-5 days of menses. doxycycline hyclate 100 mg capsule 100 mg PO BID 5 Days Qty: 10 0RF Print Language: Pashto
[2024-03-08 15:49] LABS: MANUAL DIFF FLAG NO
[2024-03-08 15:51] LABS: Basophils Percent Auto 0.4 % (0-2); Eosinophils Absolute Auto 0.5 X10*3/uL (0.0-0.4); Eosinophils Percent Auto 8.5 % (0-4); Hematocrit 37.2 % (37.0-47.0); Hemoglobin 12.6 g/dl (12.0-16.0); Imm Gran Abs Auto 0.01 X10*3/uL (0.00-0.03); Imm Gran Pct Auto 0.2 % (0.0-0.4); Lymphocytes Absolute Auto 1.4 X10*3/uL (1.2-4.9); Lymphocytes Percent Auto 25.7 % (20-40); Mean Corpuscular HGB Conc 33.9 g/dl (31.0-35.0); Mean Corpuscular Hemoglobin 31.9 pg (27.0-33.0); Mean Corpuscular Volume 94.2 fL (80.0-98.0); Mean Platelet Volume 10.1 fL (9.4-12.3); Monocytes Absolute Auto 0.5 X10*3/uL (0.1-1.2); Monocytes Percent Auto 8.5 % (2-11); Neutrophils Absolute Auto 3.1 x10*3/uL (2.0-8.3); Neutrophils Percent Auto 56.7 % (45-73); Platelet Count 263 X10*3/uL (160-400); Red Blood Count 3.95 X10*6/uL (4.20-5.50); Red Cell Distribution Width 13.2 % (11.0-16.0); White Blood Count 5.4 X10*3/uL (4.8-10.8)
[2024-03-08 16:12] LABS: Alanine Aminotransferase 17 U/L (0-31); Albumin Level 3.9 g/dL (3.5-5.0); Anion Gap 8 (12-20); Aspartate Amino Transferase 23 U/L (5-31); Bilirubin Total 0.3 mg/dL (0.0-1.0); Blood Urea Nitrogen 7 mg/dL (9-16); Calcium 9.8 mg/dL (8.4-10.2); Carbon Dioxide 25 mmol/L (22-29); Chloride 107 mmol/L (96-108); Creatinine Clr Calc Pharmacy 103.4; Estimated Glomerular Filt Rate > 60; Glucose Random 123 mg/dL (60-115); HCG Quantitative < 2 mIU/mL; Potassium 3.5 mmol/L (3.3-5.1); Sodium 136 mmol/L (135-145)
[2024-03-08 16:47] LABS: Alkaline Phosphatase 70 U/L (39-117)
[2024-03-08 22:00] VITALS: BP 129/73; PULSE 78; RESP 16; TEMP 37.1; O2SAT 98
[2024-03-08] MEDS: Ondansetron ODT 4 MG TAB.RAPDIS TRANSLINGU (22:02)
[2024-03-08] MEDS: Tranexamic Acid 650 MG TABLET 1300 MG PO (22:02)
[2024-03-08 22:14] VITALS: BP 129/73; PULSE 78; RESP 16; TEMP 37.1; O2SAT 98
== END 2024-03-08 22:15 | disposition home or self-care (01) ==
PROVIDERS: Physician Assistant Medical; Emergency Provider Emergency Medicine
DX: N92.0 Excessive and frequent menstruation with regular cycle (principal); D25.9 Leiomyoma of uterus, unspecified
CPT/HCPCS: 36415; 76830; 76856; 80053; 84702; 85025; 86850; 86900; 86901; 99284

== ENCOUNTER → 2024-03-08 15:22 | Outpatient (BNV) | payer OTHER, SELFPAY | PROVIDERS: Visit Provider Radiology Diagnostic Radiology | DX: N92.0 Excessive and frequent menstruation with regular cycle (principal) | CPT/HCPCS: 76830; 76856 ==

== ENCOUNTER 2024-09-25 08:01 | Outpatient (REF) | payer OTHER, SELFPAY | END 2024-09-25 08:02 | disposition home or self-care (01) | LOC: HO.LNP 08:01 | PROVIDERS: Visit Provider Obstetrics & Gynecology | DX: Z01.419 Encounter for gynecological examination (general) (routine) without abnormal findings (principal) | CPT/HCPCS: 87626; 88175; 99395 ==

== ENCOUNTER 2024-09-25 08:01 | Outpatient (AMB) | payer OTHER, SELFPAY ==
--- NOTE | 2024-09-25 08:02 | MHC.OFFVIS ---
Vital Signs 09/25/24 08:05 Height 5 ft 5 in Weight 160 lb BMI 26.6 BP 110/70 Intake Visit Reasons: RESIDENCY PROGRAM COORDINATOR annual exam Quality Assurance Supervisor Required: No Information Interpreted: non-clinical & clinical Glass Production Machine Operator: Glass Production Machine Operator Present (Germaine KWOK) Accompanied by: Self / Same As Patient Allergies No Known Allergies Allergy (Verified 09/25/24 08:06) Is last menstrual period known: Yes Last menstrual period: 08/31/24 HPI Comments Details: Presenting for annual exam. No complaints. Last Pap/HPV was negative in 07/30 [facility] Medical History Constipation Endometriosis Hypoglycemia Surgical History Hx of laparoscopy Family History Father HTN (hypertension) Diabetes Mother Hypothyroid Maternal Grandfather No problems noted. Maternal Aunt Throat cancer Sister Hypothyroid Social History Household Members: Significant Other Household Members Other:: son Housing: Condominium Are you a primary care worker to a significant other at home: No Do you presently have visiting nurse or other home services: No Alcohol intake: never Patient Tobacco Use Status: Never used Tobacco service: No Current occupational status: employed Current occupation: Sail rep Sexual orientation: Straight/Heterosexual Gender identity: Female Female Reproductive History Menstrual Age of Menarche: 10 Date of last menstrual period: 08/31/24 Date of last pap smear: 07/23/20 Review of Systems Const All systems reviewed & are unremarkable except as noted in HPI and below Card Reports as per HPI Resp Reports as per HPI GI Reports as per HPI and Reports no additional complaints Reports as per HPI Physical Exam Vital Signs: Last Vital Signs BP 110/70 09/25/24 08:05 BMI result Body Mass Index 26.6 Const General: cooperative, healthy appearing and comfortable Chest Chest palpation & inspection: normal inspection of the chest and normal palpation of entire chest wall Breast/axilla inspection: normal inspection of the breasts and normal inspection of the axillae Breast/axilla palpation: normal palpation of the breasts, normal palpation of the axillae and no axillary lymphadenopathy Resp Effort & Inspection: normal respiratory effort Auscultation: clear to auscultation bilaterally Percussion: percussion normal Cardio Palpation: normal PMI Rate: regular rate Rhythm: regular rhythm Heart sounds: no murmurs and no rubs Peripheral pulses: Peripheral pulses 2+ throughout GI Inspection: Yes normal to inspection Palpation (GI): Soft to palpation, nontender, no guarding, not rigid and No hepatosplenomegaly present Percussion: Yes normal to percussion Auscultation: normal bowel sounds Rectal Exam - Female: deferred General: Yes bladder normal to palpation External Female Exam: No lesion Speculum Exam - Vagina: normal appearance of the vagina, normal palpation, normal vaginal discharge and not erythematous Speculum Exam - Cervix: normal appearance of the cervix and normal palpation Bimanual exam- vagina & uterus: normal bimanual exam, normal palpation, uterine size normal, bladder normal to palpation, consistency normal and normal palpation Bimanual Exam- Adnexa, other: normal adnexae, no masses and no tenderness Assessment & Plan Assessment & Plan (1) Well woman exam: Code(s): Z01.419 - Encounter for gynecological examination (general) (routine) without abnormal findings Category: Medical Plan: Cotesting done. The patient was instructed to perform monthly self-breast exams and to schedule an annual exam in a year; All questions answered and the patient verbalized understanding. Instructed the patient to schedule annual exam in a year Coding Level of Care Code Est Pt Prev Care 18-39y(67368) Diagnoses Well woman exam Z01.419
--- OUTSIDE RECORDS SUMMARY | 2024-09-25 08:03 | XMS_ITS | Encounter Summary ---
Author Organization [employer] Address [address] [place] [address] Care Team Providers Care Systems Test Analyst Name Role Phone Mary Middleton Primary Care Provider [phone] Elias Rincon Primary Care Provider Unavail able Ameena Bojorquez Primary Care Provider [phone] Encounter Details Date Type Department Care Team (Latest Contact Info) Description 05/06/[address] [facility] CONVERSIONS Dental, Provider, DDS Social History Tobacco Use Types Packs/Day Years Used Date Smoking Tobacco: Never Assessed Comments Unknown Sex and Gender Information Value Date Recorded Sex Assigned at Female 01/09/2022 10:33 AM EDT Legal Sex Female 10:33 AM EDT Gender Identity Female 01/09/2022 10:33 AM EDT Sexual Orientation Straight 01/09/2022 10 :33 AM EDT documented as of this encounter Plan of Treatment Not on file documented as of this encounter Visit Diagnoses Not on filedocumented in this encounter Care Teams Systems Test Analyst Relationship Specialty Start Date End Date Mary Middleton FNP PCP - General Family Medicine 09/06/21 09/14/22 Elias Rincon AGNP PCP - General Family Medicine 09/15/22 11/21/22 Ameena Bojorquez ANP [address] [place] [id number] PCP - General Family Medicine 11/22/22 documented as of this encounter
[2024-09-25 08:05] VITALS: BP 110/70; BMI 26.6
== END 2024-09-25 08:52 | disposition home or self-care (01) ==
LOC: HO.HWS 08:01
PROVIDERS: Visit Provider Obstetrics & Gynecology
DX: Z01.419 Encounter for gynecological examination (general) (routine) without abnormal findings (principal)
CPT/HCPCS: 99395; 99459

== ENCOUNTER 2024-10-13 16:45 | Outpatient (REF) | payer OTHER, SELFPAY ==
--- OUTSIDE RECORDS SUMMARY | 2024-10-13 16:47 | XMS_ITS | Encounter Summary ---
Author Organization [employer] Address [address] [place] [address] [address] [place] [address] Care Team Providers Care Key Entry Operator Name Role Phone Mary Middleton Primary Care Provider [phone] Elias Rincon Primary Care Provider Unavail able Ameena Bojorquez Primary Care Provider [phone] Encounter Details Date Type Department Care Team (Latest Contact Info) Description 05/06/2020 Abstract [facility] CONVERSIONS Dental, Provider, DDS Social History Tobacco [...] on filedocumented in this encounter Care Teams Key Entry Operator Relationship Specialty Start Date End Date Mary Middleton FNP PCP - General Family Medicine 09/06/21 09/14/22 Elias Rincon AGNP PCP - General Family Medicine 09/15/22 11/21/22 Ameena Bojorquez ANP [address] [place] [id number] PCP - General Family Medicine 11/22/22 documented as of this encounter
== END 2024-10-13 16:46 | disposition home or self-care (01) ==
LOC: HO.HHCLNP 16:45
PROVIDERS: Visit Provider Nurse Practitioner
DX: N30.01 Acute cystitis with hematuria (principal)
CPT/HCPCS: 87086; 87088; 87186